=== PATIENT | female | born 2000 | race Caucasian/White ===

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

== ENCOUNTER 2022-04-19 15:19 | Emergency (ER) | payer MEDICAID, SELFPAY ==
[2022-04-19 15:46] VITALS: BP 111/54; PULSE 69; RESP 16; TEMP 36.6; O2SAT 99; BMI 21.9
[2022-04-19 17:24] LABS: Hemoglobin 12.3 g/dl (12.0-16.0); Mean Corpuscular HGB Conc 33.2 g/dl (31.0-35.0); Mean Corpuscular Hemoglobin 31.1 pg (27.0-33.0); Mean Corpuscular Volume 93.7 fL (80.0-98.0); Mean Platelet Volume 10.9 fL (9.4-12.3); Platelet Count 228 X10*3/uL (160-400); Red Blood Count 3.95 X10*6/uL (4.20-5.50); Red Cell Distribution Width 12.1 % (11.0-16.0); White Blood Count 10.8 X10*3/uL (4.8-10.8)
[2022-04-19 17:38] LABS: Anion Gap 14 (12-20); Blood Urea Nitrogen 9 mg/dL (9-16); Calcium 10.2 mg/dL (8.4-10.2); Carbon Dioxide 25 mmol/L (22-29); Chloride 105 mmol/L (96-108); Creatinine Clr Calc Pharmacy 100.7; Estimated Glomerular Filt Rate > 60; Glucose Random 102 mg/dL (60-115); Potassium 4.2 mmol/L (3.3-5.1); Sodium 140 mmol/L (135-145)
[2022-04-19 17:39] LABS: Appearance Urine Turbid; Color Urine RED; Glucose Urine UA 100 mg/dL (Negative); Leukocyte Esterase Urine Small (1+) (Negative); Nitrite Urine Positive (Negative); PH 7.5 (5.0-9.0); UMIC TRIGGER UACC YES; Urine Blood Large (3+) (Negative); Urine Ketones Negative (Negative); Urine Protein 300 (3+) mg/dL (Neg-Trace)
[2022-04-19 17:55] LABS: UPreg QC Valid YES; Urine Pregnancy NEGATIVE (NEGATIVE)
[2022-04-19 17:56] LABS: Bacteria Urine 1+ (None Seen); RBC Urine >20 /HPF (0-2); Squamous Epithelial Cell Urine 0-2 /HPF (0-2); UACC Culture Trigger YES
[2022-04-19 17:57] LABS: Hyaline Casts Urine 0-2 /LPF (0-2)
== END 2022-04-19 18:33 | disposition left against medical advice (07) ==
PROVIDERS: Emergency Provider Emergency Medicine
DX: M54.50 Low back pain, unspecified (principal); R11.10 Vomiting, unspecified; Z79.899 Other long term (current) drug therapy
CPT/HCPCS: 36415; 80048; 81001; 81025; 85027; 87086; 99282; 99283

== ENCOUNTER 2022-09-02 17:25 | Emergency (ER) | payer MEDICAID, SELFPAY ==
[2022-09-02 17:38] VITALS: BP 98/61; PULSE 66; RESP 16; TEMP 36.8; O2SAT 99; BMI 19.3
--- NOTE | 2022-09-02 17:38 | ED.GENADULT ---
HPI - General Adult General Chief complaint: Nausea/Vomiting/Diarrhea Stated complaint: N/V abdominal pain Time Seen by Provider: 09/02/22 21:45 Related Data Previous Rx's Medication Instructions Recorded nitrofurantoin 100 mg PO BID #10 caps 04/19/21 monohydrate/macrocrystals 100 mg capsule (Macrobid) phenazopyridine 200 mg tablet 200 mg PO TID PRN pain 6 doses #10 04/19/21 (Pyridium) tabs loperamide 2 mg capsule 2 mg PO Q6H PRN loose stool #20 09/02/22 caps ondansetron 4 mg disintegrating 4 mg PO Q6H PRN nausea and 09/02/22 tablet vomiting #14 tabs Allergies Allergy/AdvReac Type Severity Reaction Status Date / Time SEAFOOD Allergy Unknown UNKNOWN Uncoded 09/02/22 17:38 seafood Allergy Unknown unknown Uncoded 09/02/22 17:38 [facility] Social History Social History Advance Directives: No Advance Directives Information Provided: No Physical Exam ED Vital Signs: Vital Signs - 24 hr 09/02/22 17:38 Temperature 98.2 F Pulse Rate 66 Respiratory Rate 16 Blood Pressure 98/61 Pulse Oximetry 99 Oxygen Delivery Method Room Air BMI result Body Mass Index 19.3 Course Course Course Narrative: RME performed by Melissa Miranda PA-C. Patient is a 22 year old female presenting to the emergency department with nausea, vomiting, and diarrhea. Patient states that everyone else in her house was sick with this as well. Patient states that she is unable to keep anything down at home. Labs ordered. Patient placed back in the waiting room pending room availability and results. Patient was evaluated and discharged by TIFFANIE Ornelas who created and completed her own note. Medical Decision Making Lab Data 09/02/22 17:54 09/02/22 17:54 Labs: Lab Results 09/02/22 09/02/22 09/02/22 Range/Units 17:54 17:54 17:54 WBC 12.1 H (4.8-10.8) X10*3/uL RBC 4.03 L (4.20-5.50) X10*6/uL Hgb 12.3 (12.0-16.0) g/dl Hct 36.5 L (37.0-47.0) % MCV 90.6 (80.0-98.0) fL MCH 30.5 (27.0-33.0) pg MCHC 33.7 (31.0-35.0) g/dl RDW 12.1 (11.0-16.0) % Plt Count 198 (160-400) X10*3/uL MPV 10.2 (9.4-12.3) fL Immature Gran % (Auto) 0.3 (0.0-0.4) % Neut % (Auto) 91.4 H (45-73) % Lymph % (Auto) 5.6 L (20-40) % [place] % (Auto) 2.5 (2-11) % Eos % (Auto) 0.1 (0-4) % Baso % (Auto) 0.1 (0-2) % Lymph # (Auto) 0.7 L (1.2-4.9) X10*3/uL [place] # (Auto) 0.3 (0.1-1.2) X10*3/uL Eos # (Auto) 0.0 (0.0-0.4) X10*3/uL Baso # (Auto) 0.0 (0.0-0.2) X10*3/uL Abs Immat Gran (auto) 0.04 H (0.00-0.03) X10*3/uL Absolute Neuts (auto) 11.1 H (2.0-8.3) x10*3/uL Absolute Nucleated RBC 0.000 (0.0-0.012) X10*3/uL Nucleated RBC % (auto) 0.0 (0.0-0.2) /100WBC Smear Tech's Comments VERIFIED Sodium 140 (135-145) mmol/L Potassium 3.7 (3.3-5.1) mmol/L Chloride 108 (96-108) mmol/L Carbon Dioxide 23 (22-29) mmol/L Anion Gap 13 (12-20) BUN 15 (9-16) mg/dL Creatinine 0.70 (0.5-1.4) mg/dL Estim Creat Clear Calc 110.1 Estimated GFR > 60 Random Glucose 113 (60-115) mg/dL Calcium 9.3 D (8.4-10.2) mg/dL Magnesium 1.7 (1.6-2.6) mg/dL Total Bilirubin 0.7 (0.0-1.0) mg/dL AST 28 (5-31) U/L ALT 39 H (0-31) U/L Alkaline Phosphatase 64 (39-117) U/L Total Protein 6.9 (6.5-8.0) g/dL Albumin 4.6 (3.5-5.0) g/dL Beta HCG, Quant < 2 mIU/mL COVID-19 ([facility]) Negative (Negative) COVID-19 Clin Com See Note Discharge Plan Discharge Clinical Impression: Viral illness, Nausea & vomiting, Diarrhea Patient Disposition: Home, Self-Care Instructions: Acute Nausea and Vomiting (ED), Acute Diarrhea (ED), Viral Syndrome (ED) Additional Instructions: Take your medications as prescribed. If you were prescribed antibiotics today, it is important that you take your medication to their entirety, do not skip any doses, do not finish them early. Follow-up with your primary care provider this week. Return to the emergency department with new or worsening symptoms. Such as fevers, chills, chest pain, shortness of breath, nausea, vomiting, dizziness, headache, vision changes, lethargy In case of emergency call 911 Take Zofran as prescribed for nausea and vomiting, do not take more than the prescribed dose it can lead to cardiac dysrhythmias. Loperamide is for diarrhea take this as prescribed. Prescriptions: New loperamide 2 mg capsule 2 mg PO Q6H PRN (Reason: loose stool) Qty: 20 0RF ondansetron 4 mg tablet,disintegrating 4 mg PO Q6H PRN (Reason: nausea and vomiting) Qty: 14 0RF No Action nitrofurantoin monohyd/m-cryst [Macrobid] 100 mg capsule 100 mg PO BID Qty: 10 0RF Rx Instructions: must administer with a meal/food phenazopyridine [Pyridium] 200 mg tablet 200 mg PO TID PRN (Reason: pain) Qty: 10 0RF Referrals: [facility] [Primary Care Provider] - 2 days Stand Alone Forms: Work/School Release Interventions: ED Discharge Assessment Last Done: 09/02/22 22:34 Discharge Date/Time: 09/02/22 22:34
[2022-09-02 18:00] LABS: Basophils Percent Auto 0.1 % (0-2); Eosinophils Percent Auto 0.1 % (0-4); Hematocrit 36.5 % (37.0-47.0); Hemoglobin 12.3 g/dl (12.0-16.0); Imm Gran Abs Auto 0.04 X10*3/uL (0.00-0.03); Imm Gran Pct Auto 0.3 % (0.0-0.4); Lymphocytes Absolute Auto 0.7 X10*3/uL (1.2-4.9); Lymphocytes Percent Auto 5.6 % (20-40); MANUAL DIFF FLAG SCAN; Mean Corpuscular HGB Conc 33.7 g/dl (31.0-35.0); Mean Corpuscular Hemoglobin 30.5 pg (27.0-33.0); Mean Corpuscular Volume 90.6 fL (80.0-98.0); Mean Platelet Volume 10.2 fL (9.4-12.3); Monocytes Absolute Auto 0.3 X10*3/uL (0.1-1.2); Monocytes Percent Auto 2.5 % (2-11); Neutrophils Absolute Auto 11.1 x10*3/uL (2.0-8.3); Neutrophils Percent Auto 91.4 % (45-73); Platelet Count 198 X10*3/uL (160-400); Red Blood Count 4.03 X10*6/uL (4.20-5.50); Red Cell Distribution Width 12.1 % (11.0-16.0); SCAN SMEAR FLAG 1; White Blood Count 12.1 X10*3/uL (4.8-10.8)
[2022-09-02 18:13] LABS: COVID-19 Test Negative (Negative); IDNOW Serial# 16C4AD1C
[2022-09-02 18:21] LABS: Alanine Aminotransferase 39 U/L (0-31); Albumin Level 4.6 g/dL (3.5-5.0); Alkaline Phosphatase 64 U/L (39-117); Anion Gap 13 (12-20); Aspartate Amino Transferase 28 U/L (5-31); Bilirubin Total 0.7 mg/dL (0.0-1.0); Blood Urea Nitrogen 15 mg/dL (9-16); Calcium 9.3 mg/dL (8.4-10.2); Carbon Dioxide 23 mmol/L (22-29); Chloride 108 mmol/L (96-108); Creatinine Clr Calc Pharmacy 110.1; Estimated Glomerular Filt Rate > 60; Glucose Random 113 mg/dL (60-115); Magnesium 1.7 mg/dL (1.6-2.6); Potassium 3.7 mmol/L (3.3-5.1); Sodium 140 mmol/L (135-145); Total Protein 6.9 g/dL (6.5-8.0)
[2022-09-02 18:23] LABS: HCG Quantitative < 2 mIU/mL
[2022-09-02 18:55] LABS: SLIDE REVIEW VERIFIED
--- NOTE | 2022-09-02 22:29 | ED_ITS ---
HPI - Nausea/Vomiting/Diarrhea General Chief complaint: Nausea/Vomiting/Diarrhea Stated complaint: N/V abdominal pain Time Seen by Provider: 09/02/22 21:45 Source: patient Mode of arrival: ambulatory Limitations: no limitations History of Present Illness HPI Narrative: 22-year-old female without significant medical history presents to the emergency department with nausea, vomiting, diarrhea, subjective fevers and chills x2 days, patient tells me that she is also having slight cramping to the epigastric region, worse with vomiting. Patient tells me abdominal pain is intermittent in nature, described as a discomfort not so much pain. Patient tells me that her significant other was sick with similar symptoms about a week ago. She reports that her vomiting and diarrhea have not had any blood in them. She tells me she has felt faint. However, has not passed out. Patient denies chest pain, shortness of breath, vision changes, dizziness. Related Data Previous Rx's Medication Instructions Recorded nitrofurantoin 100 mg PO BID #10 caps 04/19/21 monohydrate/macrocrystals 100 mg capsule (Macrobid) phenazopyridine 200 mg tablet 200 mg PO TID PRN pain 6 doses #10 04/19/21 (Pyridium) tabs loperamide 2 mg capsule 2 mg PO Q6H PRN loose stool #20 09/02/22 caps ondansetron 4 mg disintegrating 4 mg PO Q6H PRN nausea and 09/02/22 tablet vomiting #14 tabs Allergies Allergy/AdvReac Type Severity Reaction Status Date / Time SEAFOOD Allergy Unknown UNKNOWN Uncoded 09/02/22 17:38 seafood Allergy Unknown unknown Uncoded 09/02/22 17:38 Review of Systems Review of Systems: Constitutional : No Weight loss, + Fever, + Chills, + Fatigue, + Malaise ENT/Mouth : No sore throat, No Rhinorrhea Eyes: No Eye Pain, No Swelling, No Redness Cardiovascular : No Chest Pain, No SOB, No Dyspnea on Exertion, No Orthopnea, No Edema, No Palpitations Respiratory : No Cough, No Sputum, No Wheezing Gastrointestinal : + Nausea, + Vomiting, + Diarrhea, No Constipation, + abdominal Pain, No Hematochezia, No Melena Genitourinary : No Dysuria, No Urinary Frequency, No Hematuria, Musculoskeletal : No joint pain, No Myalgias, No Joint Swelling Skin : No Skin Lesions, No rash Neuro : No Weakness, No Numbness, No Dizziness, No Headache Psych : No Anxiety/Panic, No Depression All other systems reviewed and are negative Yes all other systems are reviewed and are negative [facility] Past Medical History Attestation statement: The following information was validated with the patient. Source: old records reviewed and nursing notes reviewed Social History Social History Advance Directives: No Advance Directives Information Provided: No Physical Exam Vital Signs: Vital Signs: Last Vital Signs Temp 98.2 F 09/02/22 17:38 Pulse 66 09/02/22 17:38 Resp 16 09/02/22 17:38 BP 98/61 09/02/22 17:38 Pulse Ox 99 09/02/22 17:38 O2 Del Method 09/02/22 17:38 BMI result Body Mass Index 19.3 Vital signs stable Appearance: Alert.? Oriented X3.? No acute distress.? Head: Normocephalic, atraumatic, no step-offs or deformities Eyes: Pupils equal, round and reactive to light.? Neck: Normal inspection.? Neck supple.? CVS: Normal heart rate and rhythm.? Pulses normal.? Respiratory: No respiratory distress.? Breath sounds normal.? Abdomen: Soft and nontender.? Negative Davis's, Jett, McBurney's point Skin: Skin warm and dry.? Normal skin color.? Normal skin turgor.? Extremities: No lower extremity edema.? No calf ttp. 5/5 strength to bilateral upper and lower extremities Neuro: Oriented X 3.? No motor deficit.? No sensory deficit. CN 2-12 intact Course Reevaluation(s) Reevaluation #1: CBC with slight leukocytosis likely reactive to nausea and vomiting. Chemistry with no acute findings requiring intervention. COVID negative. Patient's abdomen remains nontender. Tolerating p.o.. At this time patient will be discharged home on Zofran, loperamide. Educated patient on diagnosis and treatment plan, answered all question, patient verbalizes understanding. At this time patient will be discharged home, advised to return with new or worsening symptoms. Educated on worrisome signs and symptoms and when to return. At this time I feel comfortable discharge home. Time: 22:33 Medical Decision Making Medical Decision Making [facility] Narrative: 22-year-old female presents with nausea, vomiting, diarrhea, subjective fevers and chills, reports recent sick contacts. With similar symptoms. Physical examination benign. Vital signs stable Likely viral illness or gastroenteritis. Unlikely acute abdomen, appendicitis, cholecystitis, diverticulitis or pancreatitis. Plan at this time basic labs, viral testing. Patient is not tender to palpation of abdomen, I do not feel as though there is a need for CT of the abdomen and pelvis. Differential Diagnosis Differential Diagnoses: The differential diagnosis associated with the presentation includes Likely viral illness or gastroenteritis. Unlikely acute abdomen, appendicitis, cholecystitis, diverticulitis or pancreatitis. Admission/Observation Consideration of admission/observation: Escalation of care including admission/observation considered Lab Data [facility] Lab Attestation statement: I reviewed the patient's lab results. 09/02/22 17:54 09/02/22 17:54 Labs: Lab Results 09/02/22 09/02/22 09/02/22 Range/Units 17:54 17:54 17:54 WBC 12.1 H (4.8-10.8) X10*3/uL RBC 4.03 L (4.20-5.50) X10*6/uL Hgb 12.3 (12.0-16.0) g/dl Hct 36.5 L (37.0-47.0) % MCV 90.6 (80.0-98.0) fL MCH 30.5 (27.0-33.0) pg MCHC 33.7 (31.0-35.0) g/dl RDW 12.1 (11.0-16.0) % Plt Count 198 (160-400) X10*3/uL MPV 10.2 (9.4-12.3) fL Immature Gran % (Auto) 0.3 (0.0-0.4) % Neut % (Auto) 91.4 H (45-73) % Lymph % (Auto) 5.6 L (20-40) % Peach % (Auto) 2.5 (2-11) % Eos % (Auto) 0.1 (0-4) % Baso % (Auto) 0.1 (0-2) % Lymph # (Auto) 0.7 L (1.2-4.9) X10*3/uL Peach # (Auto) 0.3 (0.1-1.2) X10*3/uL Eos # (Auto) 0.0 (0.0-0.4) X10*3/uL Baso # (Auto) 0.0 (0.0-0.2) X10*3/uL Abs Immat Gran (auto) 0.04 H (0.00-0.03) X10*3/uL Absolute Neuts (auto) 11.1 H (2.0-8.3) x10*3/uL Absolute Nucleated RBC 0.000 (0.0-0.012) X10*3/uL Nucleated RBC % (auto) 0.0 (0.0-0.2) /100WBC Smear Tech's Comments VERIFIED Sodium 140 (135-145) mmol/L Potassium 3.7 (3.3-5.1) mmol/L Chloride 108 (96-108) mmol/L Carbon Dioxide 23 (22-29) mmol/L Anion Gap 13 (12-20) BUN 15 (9-16) mg/dL Creatinine 0.70 (0.5-1.4) mg/dL Estim Creat Clear Calc 110.1 Estimated GFR > 60 Random Glucose 113 (60-115) mg/dL Calcium 9.3 D (8.4-10.2) mg/dL Magnesium 1.7 (1.6-2.6) mg/dL Total Bilirubin 0.7 (0.0-1.0) mg/dL AST 28 (5-31) U/L ALT 39 H (0-31) U/L Alkaline Phosphatase 64 (39-117) U/L Total Protein 6.9 (6.5-8.0) g/dL Albumin 4.6 (3.5-5.0) g/dL Beta HCG, Quant < 2 mIU/mL COVID-19 (COSME) Negative (Negative) COVID-19 Clin Com See Note Core Measures AMI core measures followed: Yes Measure exclusions: not indicated Critical Care Time Critical Care Time Critical Care Time: No Discharge Plan Discharge Clinical Impression: Viral illness, Nausea & vomiting, Diarrhea Patient Disposition: Home, Self-Care Instructions: Acute Nausea and Vomiting (ED), Acute Diarrhea (ED), Viral Syndrome (ED) Additional Instructions: Take your medications as prescribed. If you were prescribed antibiotics today, it is important that you take your medication to their entirety, do not skip any doses, do not finish them early. Follow-up with your primary care provider this week. Return to the emergency department with new or worsening symptoms. Such as fevers, chills, chest pain, shortness of breath, nausea, vomiting, dizziness, headache, vision changes, lethargy In case of emergency call 911 Take Zofran as prescribed for nausea and vomiting, do not take more than the prescribed dose it can lead to cardiac dysrhythmias. Loperamide is for diarrhea take this as prescribed. Prescriptions: New loperamide 2 mg capsule 2 mg PO Q6H PRN (Reason: loose stool) Qty: 20 0RF ondansetron 4 mg tablet,disintegrating 4 mg PO Q6H PRN (Reason: nausea and vomiting) Qty: 14 0RF No Action nitrofurantoin monohyd/m-cryst [Macrobid] 100 mg capsule 100 mg PO BID Qty: 10 0RF Rx Instructions: must administer with a meal/food phenazopyridine [Pyridium] 200 mg tablet 200 mg PO TID PRN (Reason: pain) Qty: 10 0RF Referrals: [facility] [Primary Care Provider] - 2 days
== END 2022-09-02 22:34 | disposition home or self-care (01) ==
PROVIDERS: Physician Assistant Medical; Emergency Provider Emergency Medicine
DX: B34.9 Viral infection, unspecified (principal); R11.2 Nausea with vomiting, unspecified; R19.7 Diarrhea, unspecified; R10.9 Unspecified abdominal pain; Z20.822 Contact with and (suspected) exposure to COVID-19; Z20.828 Contact with and (suspected) exposure to other viral communicable diseases; Z79.899 Other long term (current) drug therapy
CPT/HCPCS: 80053; 83735; 84702; 85025; 87635; 99282; 99283

== ENCOUNTER 2023-03-16 12:03 | Outpatient (REF) | payer MEDICAID, SELFPAY ==
[2023-03-18 22:17] LABS: TS Negative Control Passed; TS Panel A 0; TS Panel B 0; TS Positive Control Passed; TSpotTB Negative (Negative)
== END 2023-03-16 12:04 | disposition home or self-care (01) ==
LOC: HO.HHCL 12:03
PROVIDERS: Visit Provider Family Medicine
DX: Z11.1 Encounter for screening for respiratory tuberculosis (principal)
CPT/HCPCS: 36415; 86481

== ENCOUNTER 2023-03-17 12:09 | Outpatient (REF) | payer MEDICAID, SELFPAY ==
[2023-03-18 09:20] LABS: HBS Num1 0.19 mIU/mL (0-7.99); HBc Num1 0.19 S/CO (0.00-0.79); HBsAGNum1 0.33 S/CO (0.00-0.99); HIV AB/AG Nonreactive (Nonreactive); HIV Num 1 0.06 S/CO (0.00-0.99); Hepatitis A Antibody IgM 0.23 Index (0-0.79); Hepatitis B Core Antibody Nonreactive (Nonreactive); Hepatitis B Surface Antigen Negative (Negative); ~HepC Num1 0.55 S/CO (0.00-0.79); ~Hepatitis A Antibody IgM Nonreactive (Nonreactive); ~Hepatitis B Surface Antibody NONREACTIVE (Nonreactive); ~Hepatitis C Antibody Nonreactive (Nonreactive)
[2023-03-18 09:31] LABS: Syphilis Screen Nonreactive (Nonreactive)
[2023-03-18 09:34] LABS: CT PCR NOT DETECTED (Not Detect.); NG PCR NOT DETECTED (Not Detect.)
[2023-03-18 12:34] LABS: BV Int Neg Control Negative (Negative); BV Int Pos Control Positive (Positive)
== END 2023-03-17 12:10 | disposition home or self-care (01) ==
LOC: HO.HHCL 12:09
PROVIDERS: Visit Provider Emergency Medicine
DX: N89.8 Other specified noninflammatory disorders of vagina (principal); A64 Unspecified sexually transmitted disease
CPT/HCPCS: 0353U; 36415; 86704; 86706; 86709; 86780; 86803; 87340; 87389; 87480; 87510; 87660

== ENCOUNTER 2023-08-29 15:29 | Outpatient (REF) | payer MEDICAID, SELFPAY ==
[2023-08-30 02:14] LABS: Syphilis Screen Nonreactive (Nonreactive)
[2023-08-30 02:46] LABS: HBsAGNum1 0.37 S/CO (0.00-0.99); HIV AB/AG Nonreactive (Nonreactive); HIV Num 1 0.06 S/CO (0.00-0.99); Hepatitis B Surface Antigen Negative (Negative); ~HepC Num1 0.23 S/CO (0.00-0.79); ~Hepatitis C Antibody Nonreactive (Nonreactive)
[2023-08-31 18:22] LABS: C. trachomatis RNA TMA NOT DETECTED (NOT DETECTED); Candida glabrata RNA NOT DETECTED (NOT DETECTED); Candida species RNA DETECTED (NOT DETECTED); N. gonorrhoeae RNA TMA NOT DETECTED (NOT DETECTED); Trichomonas vaginalis RNA NOT DETECTED (NOT DETECTED)
== END 2023-08-29 15:30 | disposition home or self-care (01) ==
LOC: HO.HHCL 15:29
PROVIDERS: Visit Provider Pediatrics
DX: N89.8 Other specified noninflammatory disorders of vagina (principal)
CPT/HCPCS: 36415; 81513; 86780; 86803; 87340; 87389; 87481; 87491; 87591; 87661

== ENCOUNTER 2025-01-09 01:48 | Emergency (ER) | payer MEDICAID, SELFPAY ==
--- NOTE | 2025-01-09 01:55 | ED_ITS ---
HPI - Psych General Chief Complaint: Psychiatric Symptoms Stated Complaint: depression? months, SI thoughts today Source: patient, EMS and old records reviewed Mode of arrival: EMS Limitations: no limitations History of Present Illness ED Provider: IKE SMITH Narrative: 24 yo female with PMH of anxiety who is not on medications or therapy - she has two small children at home 2 yr old and 8 months. She has been having increased depression and thoughts of SI. She felt suicidal earlier but not at the moment. She hits herself when she is frustrated. She has no therapy and takes no medications. She sent her kids to their grandmother's house for the holiday. She lives with a family member but she has to leave in 2 months and cannot get into a penitentiary. MD complaint: suicidal ideation and feels depressed Duration: getting worse History of same: Yes Relieving factors: none Exacerbating factors: other Context: significant life stressor Associated psychiatric symptoms: depression and suicidal ideation Associated symptoms: denies other symptoms Treatments prior to arrival: none If self harm: admits thoughts of self harm Related Data Home Medications ?Medication ?Instructions ?Recorded ?Confirmed No Known Home Meds 01/09/25 01/09/25 Allergies Allergy/AdvReac Type Severity Reaction Status Date / Time SEAFOOD Allergy Unknown UNKNOWN Uncoded 01/09/25 02:04 seafood Allergy Unknown unknown Uncoded 01/09/25 02:04 Review of Systems 2 Review of Systems: Constitutional : No Fever, No Chills ENT/Mouth : No Ear Pain, No Nasal Congestion, No sore throat Eyes: No Eye Pain, No Swelling, No Redness Cardiovascular : No Chest Pain, No SOB Respiratory : No Cough, No Sputum, No Dyspnea Gastrointestinal : No Nausea, No Vomiting, No Diarrhea, No Hematochezia, No Melena Genitourinary : No Dysuria, No Urinary Frequency, No Hematuria Musculoskeletal : No Myalgias Skin : No Skin Lesions, No rash Neuro : No Weakness, No Numbness, No Paresthesias, No Dizziness, No Headache Psych : positive Anxiety, positive Depression, positive SI no HI All other systems reviewed and are negative PMFSH Past Medical History Attestation statement: The following information was validated with the patient. Source: old records reviewed Medical History Anxiety Social History Social History (Updated 01/09/25 @ 01:56 by Tania Knight DO) Patient Tobacco Use Status: Never used Tobacco Advance Directives: No Advance Directives Information Provided: Yes Do you have a plan to hurt others: No Plan Physical Exam 2 Vital Signs: Vital Signs: Last Vital Signs Temp 98.1 F 01/09/25 08:27 Pulse 64 01/09/25 08:27 Resp 14 01/09/25 08:27 BP 102/65 01/09/25 08:27 Pulse Ox 94 01/09/25 08:27 O2 Del Method Room Air 01/09/25 08:27 BMI result Body Mass Index 24.6 Appearance: Alert. Oriented X3. No acute distress. Tearful Eyes: Pupils equal, round and reactive to light. ENT: Pharynx normal. Neck: Normal inspection. Neck supple. CVS: Normal heart rate and rhythm. Pulses normal. Respiratory: No respiratory distress. Breath sounds normal. Abdomen: Soft and nontender. Skin: Skin warm and dry. Normal skin color. Normal skin turgor. Extremities: No lower extremity edema. No calf ttp Neuro: Oriented X 3. No motor deficit. No sensory deficit. CN2-12 intact Course Course Course Narrative: WBC count elevated but no source of infection reported. Reevaluation(s) Reevaluation #1: Time: 16:52 Date: 01/09/25 Provider: TIFFANIE Carias Patient presented with thoughts of SI, struggling with depression. she was medically cleared. I spoke with Deborah from CARE team who has evaluated patient. Patient's partner has been at her bedside all day. Deborah has cleared patient and is recommending outpatient follow up. She does not feel as though patient is a harm to herself or others at this point. They have created a safety plan. Patient was informed to return to the ED with any new or worsening symptoms. she will be discharged home with her partner. end physician observation at 1656. Medical Decision Making Medical Decision Making MDM Narrative: 24 yo female with anxiety and depression here with c/o increased depression and SI that has resolved. No medical issues or complaints she will need labs and CARE team consult. She is very tearful. She has been applying to shelters and housing and cannot get into anything. Her housing situation will be unstable in 2 months. Differential Diagnosis Differential Diagnoses: The differential diagnosis associated with the presentation includes anxiety, depression, SI Admission/Observation Consideration of admission/observation: Escalation of care including admission/observation considered physician observation started at 204am Consult Healthcare Provider Management of the patient was discussed with: Behavioral Health Provider Lab Data MDM Lab Attestation statement: I reviewed the patient's lab results. 01/09/25 02:10 01/09/25 02:10 Labs: Lab Results 01/09/25 01/09/25 Range/Units 02:10 02:17 WBC 17.2 H (4.8-10.8) X10*3/uL RBC 3.66 L (4.20-5.50) X10*6/uL Hgb 11.5 L (12.0-16.0) g/dl Hct 33.3 L (37.0-47.0) % MCV 91.0 (80.0-98.0) fL MCH 31.4 (27.0-33.0) pg MCHC 34.5 (31.0-35.0) g/dl RDW 12.6 (11.0-16.0) % Plt Count 241 (160-400) X10*3/uL MPV 10.7 (9.4-12.3) fL Immature Gran % (Auto) 0.4 (0.0-0.4) % Neut % (Auto) 80.1 H (45-73) % Lymph % (Auto) 15.0 L (20-40) % Mitchell % (Auto) 4.1 (2-11) % Eos % (Auto) 0.2 (0-4) % Baso % (Auto) 0.2 (0-2) % Lymph # (Auto) 2.6 (1.2-4.9) X10*3/uL Mitchell # (Auto) 0.7 (0.1-1.2) X10*3/uL Eos # (Auto) 0.0 (0.0-0.4) X10*3/uL Baso # (Auto) 0.0 (0.0-0.2) X10*3/uL Abs Immat Gran (auto) 0.07 H (0.00-0.03) X10*3/uL Absolute Neuts (auto) 13.8 H (2.0-8.3) x10*3/uL Absolute Nucleated RBC 0.000 (0.0-0.012) X10*3/uL Nucleated RBC % (auto) 0.0 (0.0-0.2) /100WBC Sodium 142 (135-145) mmol/L Potassium 3.4 (3.3-5.1) mmol/L Chloride 109 H (96-108) mmol/L Carbon Dioxide 23 (22-29) mmol/L Anion Gap 13 (12-20) BUN 13 (9-16) mg/dL Creatinine 0.79 (0.5-1.4) mg/dL Estim Creat Clear Calc 92.1 Estimated GFR > 60 Random Glucose 93 (60-115) mg/dL Calcium 9.6 (8.4-10.2) mg/dL Total Bilirubin 0.5 (0.0-1.0) mg/dL Direct Bilirubin 0.2 (0.0-0.5) mg/dL AST 22 (5-31) U/L ALT 17 (0-31) U/L Alkaline Phosphatase 65 (39-117) U/L Total Protein 7.3 (6.5-8.0) g/dL Albumin 4.9 (3.5-5.0) g/dL Urine Color Dark Yellow Urine Appearance Cloudy Urine pH 5.5 (5.0-9.0) Ur Specific Strawn >= 1.030 H (1.005-1.025) Urine Protein 100 (2+) H (Neg-Trace) mg/dL Urine Glucose (UA) Negative (Negative) mg/dL Urine Ketones 15 (Negative) mg/dL Urine Blood Negative (Negative) Urine Nitrite Negative (Negative) Ur Leukocyte Esterase Negative (Negative) Urine RBC 11-20 H (0-2) /HPF Urine WBC 0-5 (0-5) /HPF Ur Squamous Epith Cells 11-20 (0-2) /HPF Urine Bacteria Trace (None Seen) Hyaline Casts >20 (0-2) /LPF Granular Casts Present Urine Yeast Present Urine Test NEGATIVE (NEGATIVE) Urine Opiates Screen Not Detected (Not Detect) Ur Buprenorphine Scrn Not Detected (Not Detect) ng/mL Ur Oxycodone Screen Not Detected (Not Detect) ng/mL Urine Methadone Screen Not Detected (Not Detect) ng/mL Urine Fentanyl Screen Not Detected (Not Detect) Ur Barbiturates Screen Not Detected (Not Detect) Ur Phencyclidine Scrn Not Detected (Not Detect) Ur Amphetamines Screen Not Detected (Not Detect) U Benzodiazepines Scrn Not Detected (Not Detect) Urine Cocaine Screen Not Detected (Not Detect) U Marijuana (THC) Screen POSITIVE H (Not Detect) Ethyl Alcohol 12 mg/dL Independent Historian Clinical information obtained from an independent historian. History obtained from or confirmed by: EMS External Record Review External record reviewed: Outpatient record Discharge Plan Discharge Clinical Impression: Depression Qualifiers: Depression Type: unspecified Qualified Code(s): F32.A - Depression, unspecified Patient Disposition: Home, Self-Care Instructions: Depression (ED) Additional Instructions: You were seen in our Emergency Department today for depression and suicidal thoughts. It is important after your visit that you follow up with either your behavioral health provider or a primary care doctor within 7 days.? You have a safety plan in place with our CARE team. If you have trouble finding a therapist you can reach out to [address] [phone] The National Suicide and Crisis Lifeline can be reached 7 days a week 24 hours a day.? Call 988 to speak with someone.? Return for any worsening symptoms or concerns such as thoughts of self harm or harm to others. Please call 911 if you feel your mental health is worsening.? Prescriptions: No Action No Known Home Meds Referrals: [facility] [Primary Care Provider, Medical] Interventions: [place]-Suicide Risk Severity Scale Last Done: 01/09/25 03:37 Print Language: Syriac
[2025-01-09 01:59] VITALS: BMI 24.6
[2025-01-09 02:24] LABS: MANUAL DIFF FLAG NO
[2025-01-09 02:27] LABS: Hematocrit 33.3 % (37.0-47.0); Hemoglobin 11.5 g/dl (12.0-16.0); Imm Gran Abs Auto 0.07 X10*3/uL (0.00-0.03); Imm Gran Pct Auto 0.4 % (0.0-0.4); Lymphocytes Absolute Auto 2.6 X10*3/uL (1.2-4.9); Mean Corpuscular HGB Conc 34.5 g/dl (31.0-35.0); Mean Corpuscular Hemoglobin 31.4 pg (27.0-33.0); Mean Corpuscular Volume 91.0 fL (80.0-98.0); NRBC Abs Auto 0.000 X10*3/uL (0.0-0.012); NRBC Pct Auto 0.0 /100WBC (0.0-0.2); Platelet Count 241 X10*3/uL (160-400); Red Blood Count 3.66 X10*6/uL (4.20-5.50); White Blood Count 17.2 X10*3/uL (4.8-10.8)
[2025-01-09 02:31] LABS: Appearance Urine Cloudy; Glucose Urine UA Negative (Negative); PH 5.5 (5.0-9.0); Specific Gravity - Urine >= 1.030 (1.005-1.025); UMIC TRIGGER UACC YES
[2025-01-09 02:32] LABS: UPreg QC Valid YES
[2025-01-09 02:41] LABS: Cannabinoid Screen Urine POSITIVE (Not Detect)
[2025-01-09 02:47] LABS: Alanine Aminotransferase 17 U/L (0-31); Albumin Level 4.9 g/dL (3.5-5.0); Alkaline Phosphatase 65 U/L (39-117); Anion Gap 13 (12-20); Aspartate Amino Transferase 22 U/L (5-31); Blood Urea Nitrogen 13 mg/dL (9-16); Calcium 9.6 mg/dL (8.4-10.2); Carbon Dioxide 23 mmol/L (22-29); Chloride 109 mmol/L (96-108); Creatinine Clr Calc Pharmacy 92.1; Estimated Glomerular Filt Rate > 60; Potassium 3.4 mmol/L (3.3-5.1); Sodium 142 mmol/L (135-145); Total Protein 7.3 g/dL (6.5-8.0)
--- OUTSIDE RECORDS SUMMARY | 2025-01-09 03:28 | XMS_ITS | Referral Summary ---
Author Organization [facility] Address [address] [place] [address] Care Team Providers Care Well Driller Helper Name Role Phone [facility] Primary Care Provider Allergies Active Allergy Reactions Criticality Noted Date Comments Shellfish Derived Angioedema High 08/31/2020 Medications ibuprofen (MOTRIN) 600 mg tablet Take 1 tablet (600 mg total) by mouth every 6 hours as needed for pain. 30 tablet 08/31/2020 Active methylergonovine (METHERGINE) 0.2 mg tablet Take 1 tablet (0.2 mg total) by mouth every 6 hours. 4 tablet 09/01/2020 Active Active Problems Problem Noted Date Diagnosed Date Unplanned 08/31/2020 Immunizations Immunization Administration Dates Next Due Rho (D) Immune Globulin - IM 09/01/2020 Social History Tobacco Use Types Packs/Day Years Used Date Smoking Tobacco: Never Smokeless Tobacco: Never Alcohol Use Standard Drinks/Week Comments Never 0 (1 standard drink = 0.6 oz pur e alcohol) Comments Unknown Sex and Gender Information Value Date Recorded Sex Assigned at Not on file Legal Sex Female 11:25 AM EST Gender Identity Not on file Sexual Orientation Not on file Last Filed Vital Signs Vital Sign Reading Time Taken Comments Blood Pressure 108/71 09/01/2020 6:04 PM EST Pulse 72 09/01/2020 6:04 PM EST Temperature 36.8 C (98.2 F) 09/01/2020 6:04 PM EST Respiratory Rate 20 09/01/2020 6:04 PM EST Oxygen Saturation 100% 09/01/2020 6:04 PM EST Inhaled Oxygen Concentration - - Weight 65.1 kg (143 lb 9.6 oz) 09/01/2020 10:03 AM EST Height 155.7 cm (5' 1.3 ) 09/01/2020 10:03 AM ES T Body Mass Index 26.87 09/01/2020 10:03 AM EST Plan of Treatment Not on file Insurance [employer] Advance Directives Documents on File Type Date Recorded Patient Housekeeping Associate Expl anation Health Care Proxy 09/02/2020 8:41 AM 09-01 Health Care Proxy 09/02/2020 7:57 AM 09-01 Health Care Proxy 09/01/2020 2:43 PM 08-11 * Full Code (Latest Code Status on File) Date Activated Date Inactivated Comments 09/01/2020 10:38 AM 09/01/2020 9:24 PM Healthcare Agents on File Name Relationship Healthcare Agent Relationshi p Communication [place] Significant Other Health Care Agent Care Teams Well Driller Helper Relationship Specialty Start Date End Date [facility] [address] [place] [id number] PCP - General 08/26/20
[2025-01-09 08:27] VITALS: BP 102/65; PULSE 64; RESP 14; TEMP 36.7; O2SAT 94
--- NOTE | 2025-01-09 09:18 | PC.NURSE ---
patient awake, alert, ambulating on unit, pt requesting to discharge and wanting to talk with care team to discharge. care team was notified.
--- NOTE | 2025-01-09 14:17 | PC.NURSE ---
care team at bedside to evaluate pt
[2025-01-09 17:15] VITALS: BP 103/66; PULSE 66; RESP 16; TEMP 36.8; O2SAT 96
--- NOTE | 2025-01-09 17:15 | PC.NURSE ---
patient a&ox3, denies si/hi, pts significant other here to transport patient home with discharge, care team gave outpt resources.
--- NOTE | 2025-01-09 22:51 | MHC.CARE ---
RAD Team emailed [facility] referral for this pt.
== END 2025-01-09 17:16 | disposition home or self-care (01) ==
PROVIDERS: Emergency Provider Emergency Medicine
DX: F32.A Depression, unspecified (principal); R45.851 Suicidal ideations; F41.9 Anxiety disorder, unspecified; Z72.89 Other problems related to lifestyle; Z59.811 Housing instability, housed, with risk of homelessness
CPT/HCPCS: 36415; 80048; 80076; 80307; 81001; 81025; 85025; 99284; S9485

== ENCOUNTER 2025-02-20 14:56 | Outpatient (REF) | payer MEDICAID, SELFPAY ==
--- OUTSIDE RECORDS SUMMARY | 2025-02-20 14:20 | XMS_ITS | Encounter Summary ---
Author Organization [employer] Address [address] [facility] [address] [place] [address] Care Team Providers Care Corner Cutter Machine Operator Name Role Phone Shelly Hernandez MD Primary Care Provider [phone] Encounter Details Date Type Department Care Team (Late st Contact Info) Description 02/20/2025 2:20 PM EDT Office Visit [facility] [address] [place] [id number] Screening examination for STI (Primary Dx); Vaginal discomfort; Amenorrhea; Vaginal discharge Social History Tobacco Use Types Packs/Day Years Used Date Smoking Tobacco: Never Passive Smoke Exposure: Never Smokeless Tobacco: Never Comments Unknown Sex and Gender Information Value Date Recorded Sex Assigned at Female 05/09/2022 10:17 AM EDT Legal Sex Female 10:17 AM EDT Gender Identity Female 05/09/2022 10:17 AM EDT Sexual Orientation Bisexual 02/20/2025 2: 11 PM EDT Sexual Orientation Straight 02/20/2025 2: 11 PM EDT documented as of this encounter Last Filed Vital Signs Vital Sign Reading Time Taken Comments Blood Pressure 128/74 02/20/2025 2:26 PM EDT Pulse 83 02/20/2025 2:26 PM EDT Temperature 37 C (98.6 F) 02/20/2025 2:26 PM EDT Respiratory Rate 16 02/20/2025 2:26 PM EDT Oxygen Saturation 99% 02/20/2025 2:26 PM EDT Inhaled Oxygen Concentration - - Weight 54 kg (119 lb 2 oz) 02/20/2025 2:26 PM ED T Height 154.9 cm (5' 1 ) 02/20/2025 2:26 PM EDT Body Mass Index 22.51 02/20/2025 2:26 PM EDT documented in this encounter Plan of Treatment Upcoming Encounters Date Type Department Care Team (Late st Contact Info) Description 05/01/2025 10:00 AM EDT Office Visit [facility] [address] [place] [address] Shelly Hernandez MD [address] [place] [address] Scheduled Orders Name Type Priority Associated Diagnoses Orde r Schedule Bacterial Vaginosis Microbiology Routine Vaginal discomfort Ordered: 02/20/2025 Chlamydia/N. Gonorrhoeae RNA, TMA, Urogenitial Microbiology Routine Vaginal discomfort Ordered: 02/20/2025 Hepatitis B surface antigen, EIA Lab Routine Screening examination for STI Expected: 02/20/2025 (Approximate), Expires: 02/20/2026 HIV-1/2 Antigen and Antibodies, Fourth Generation, with Reflexes Lab Routine Screening examination for STI Expected: 02/20/2025 (Approximate), Expires: 02/20/2026 Hepatitis C Antibody with Reflex to HCV, RNA, Quantitative, Real-Time PCR Lab Routine Screening examination for STI Expected: 02/20/2025, Expires: 02/20/2026 RPR (Monitor) with Reflex to Titer Lab Routine Screening examination for STI Expected: 02/20/2025, Expires: 02/20/2026 Hepatitis B Surface Antibody, Qualitative Lab Routine Screening examination for STI Expected: 02/20/2025 (Approximate), Expires: 02/20/2026 documented as of this encounter Procedures Procedure Name Priority Date/Time Associated Diagnosis Comments POCT , URINE Routine 02/20/2025 2:35 PM EDT Amenorrhea documented in this encounter Results * POCT Urine (02/20/2025 2:35 PM EDT) Preg Test, Ur Negative Negative, Indeterminate, None Detected, Invalid, Specimen unsatisfactory for evaluation, Weakly Positive, 2+ QC Media Lot # [id number] Lot# Expiration Date ,641 Urine 02/20/2025 2:35 PM EDT Kyra Bear DO POINT OF CARE TEST ENTER/ROBBY T ORDERABLES Final Result documented in this encounter Visit Diagnoses Diagnosis Screening examination for STI- Primary Vaginal discomfort Amenorrhea Absence of menstruation Vaginal discharge Leukorrhea, not specified as infective documented in this encounter Care Teams Corner Cutter Machine Operator Relationship Specialty Start Date End Date Shelly Hernandez MD [address] [place] [id number] PCP - General Family Medicine 08/13/20 documented as of this encounter
--- OUTSIDE RECORDS SUMMARY | 2025-02-20 15:32 | XMS_ITS | Clinical Summary ---
Author Organization [facility] Address [address] [place] [address] Care Team Providers Care Premium Representative Name Role Phone [facility] Primary Care Provider Allergies Active Allergy [...] Rho (D) Immune Globulin - IM 09/01/2020 Family History Medical History Relation Name Comments No Known Problems Mother Relation Name Status Comments Mother Alive Social History Tobacco Use Types Packs/Day Years [...] 09/01/2020 10:03 AM EST Plan of Treatment Health Maintenance Due Date Last Done Comments HIV Screening 2002 Pap Smear 2002 Varicella Vaccines (1 of 2 - 13+ 2-dose series) 2015 HPV Vaccines (1 - 3-dose series) 2017 Hepatitis B Vaccines (1 of 3 - 19+ 3-dose series) 2021 COVID-19 Vaccine (1 - 2023-2 5 season) 2024 Alcohol/Substance Use Screening 07/10/2024 Influenza Vaccine (#1) 2025 06/12/2019 DTaP,Tdap,and Td Vaccines (3 - Td or Tdap) 09/15/2029 09/16/2019, 06/21/2019 RSV Vaccine (60+ years old a nd patients) (1 - 1-dose 75+ series) 2077 Meningococcal Vaccine Completed 09/16/2019 Pneumococcal Vaccine: Pediatric (0-5 Years) and At-Risk Patients (6-50 Years) Aged Out No longer eligible based on patient's age to complete this topic Insurance [facility] Advance Directives Documents on File Type Date Recorded Patient Guard Chief Expl anation Health Care Proxy 09/02/2020 8:41 AM 09-01 Health Care Proxy 09/02/2020 7:57 AM 09-01 Health Care Proxy 09/01/2020 2:43 PM 09-01 * Full Code (Latest Code Status on File) Date Activated Date Inactivated Comments 09/01/2020 10:38 AM 09/01/2020 9:24 PM Healthcare Agents on File Name Relationship Healthcare Agent Jose Cruz p Communication Smooth Townsend Significant Other Health Care Agent Care Teams Premium Representative Relationship Specialty Start Date End Date [facility] [address] [place] [phone] PCP - General 08/26/20
[2025-02-21 03:39] LABS: HBS Num1 1.32 mIU/mL (0-7.99); HBsAGNum1 0.50 S/CO (0.00-0.99); HIV Num 1 0.05 S/CO (0.00-0.99); Hepatitis B Surface Antigen Negative (Negative); ~HepC Num1 0.22 S/CO (0.00-0.79); ~Hepatitis B Surface Antibody NONREACTIVE (Nonreactive); ~Hepatitis C Antibody Nonreactive (Nonreactive)
[2025-02-21 04:36] LABS: Bacterial Vaginosis PCR POSITIVE (Negative); Candida Group PCR NOT DETECTED (Not Detect); Candida glab krusei PCR NOT DETECTED (Not Detect); Trichomonas vaginalis PCR NOT DETECTED (Not Detect)
[2025-02-21 05:06] LABS: CT PCR NOT DETECTED (Not Detect.); NG PCR DETECTED (Not Detect.)
== END 2025-02-20 14:57 | disposition home or self-care (01) ==
LOC: HO.HHCL 14:56
PROVIDERS: PCP Family Medicine; Visit Provider Family Medicine
DX: Z11.3 Encounter for screening for infections with a predominantly sexual mode of transmission (principal); Z11.8 Encounter for screening for other infectious and parasitic diseases; Z11.59 Encounter for screening for other viral diseases; Z11.4 Encounter for screening for human immunodeficiency virus [HIV]; N94.9 Unspecified condition associated with female genital organs and menstrual cycle
CPT/HCPCS: 36415; 81515; 86592; 86706; 86803; 87340; 87389; 87491; 87591

== ENCOUNTER 2025-05-01 11:52 | Outpatient (REF) | payer MEDICAID, SELFPAY ==
--- OUTSIDE RECORDS SUMMARY | 2025-05-01 10:00 | XMS_ITS | Encounter Summary ---
Author Organization [employer] Address [address] [facility] [address] [place] [address] Care Team Providers Care Coating And Baking Operator Name Role Phone Shelly Hernandez MD Primary Care Provider [phone]- [phone] Reason for Referral * Consultation (Routine) - Authorized Specialty Diagnoses / Procedures [facility] Referred To Contact Allergy Diagnoses Shellfish allergy Shelly Hernandez MD [address] [place] [phone] Phone: tel: fax: Praveen Chun MD [address] [place] [address] Referral ID Status Reason Start Date Expiration Date Visits Requested Visits Authorized [id number] Authorized Specialty Services Required 05/01/2026 12 12 Reason for Visit * Reason Comments Annual Exam Encounter Details Date Type Department Care Team (Late st Contact Info) Description 05/01/2025 10:00 AM EDT Office Visit [facility] [address] [place] [address] [phone] Shelly Hernandez MD [address] [place] [phone] Moderate episode of recurrent major depressive disorder (CMS/HCC) (HCC) (Primary Dx); Mild intermittent asthma without complication; Shellfish allergy; History of anaphylaxis; Encounter for HIV pre-exposure prophylaxis; Encounter for vaccination; Encounter for immunization; Routine screening for STI (sexually transmitted infection); Preventative health care Social History Tobacco Use Types Packs/Day Years Used Date Smoking Tobacco: Never Passive Smoke Exposure: Never Smokeless Tobacco: Never Alcohol Use Standard Drinks/Week Comments Never 0 (1 standard drink = 0.6 oz pur e alcohol) Depression Answer Date Recorded Patient Health Questionnaire-9 Score 6 05/01/2025 Patient Health Questionnaire-9 Score 6 05/01/2025 Last PHQ-9: Questionnaire Data Not on file 1 Housing Stability Answer Date Recorded What is your housing situation today? I do not have housing (Staying with others, in a hotel, in a detention, living outside on the street, on a beach, in a car, or in a park 04/23/[address] you li ve. Do you have problems with any of the following? None of the above 04/23/2025 Food Insecurity Answer Date Recorded Within the past 12 months, y ou worried that your food would run out before you got money to buy more: Never True 04/23/2025 Within the past 12 months,th e food you bought just didn't last and you didn't have enough money to get more: Never True Transportation Answer Date Recorded In the past 12 months, has l ack of transportation kept you from medical appts, meetings, work or from getting things needed for daily living? No 04/23/2025 Utilities Answer Date Recorded In the past 12 months, has t he electric, gas, oil or water company threatened to shut off services in your home? No 04/23/2025 Depression Answer Date Recorded Patient Health Questionnaire-2 Score 2 05/01/2025 Internet Access Answer Date Recorded Internet Access Q1 Yes 04/23/2025 Internet Access Q2 Not on file 04/23/2025 Comments No Sex and Gender Information Value Date Recorded Sex Assigned at Female 05/09/2022 10:17 AM EDT Legal Sex Female 10:17 AM EDT Gender Identity Female 05/09/2022 10:17 AM EDT Sexual Orientation Bisexual 02/20/2025 2: 11 PM EDT Sexual Orientation Straight 02/20/2025 2: 11 PM EDT documented as of this encounter Last Filed Vital Signs Vital Sign Reading Time Taken Comments Blood Pressure 102/74 05/01/2025 10:04 AM EDT Pulse 76 05/01/2025 10:04 AM EDT Temperature 36.8 C (98.2 F) 05/01/2025 10:04 AM EDT Respiratory Rate 20 05/01/2025 10:0 4 AM EDT Oxygen Saturation - - Inhaled Oxygen Concentration - - Weight 57.1 kg (125 lb 12.8 oz) 025 10:04 AM EDT Height - - Body Mass Index 23.77 02/20/2025 2:26 PM EDT documented in this encounter Functional Status * Over the past 2 weeks, how often have you been bothered by any of the following problems? Question Answer Date of Assessment Author Patient Health Questionnaire -2 Score 2 05/01/2025 10:35 AM EDT Sreekanth Skinner MA * Little interest or pleasure in doing things Answer Date of Assessment Author Several days 05/01/2025 10:35 AM EDT Rosaura Skinner MA * Feeling down, depressed, or hopeless Answer Date of Assessment Author Several days 05/01/2025 10:35 AM EDT Rosaura Skinner MA * Trouble falling or staying asleep, or sleeping too much Answer Date of Assessment Author Several days 05/01/2025 10:35 AM EDT Rosaura Skinner MA * Feeling tired or having little energy Answer Date of Assessment Author Several days 05/01/2025 10:35 AM EDT Rosaura Skinner MA * Poor appetite or overeating Answer Date of Assessment Author Several days 05/01/2025 10:35 AM EDT Rosaura Skinner MA * Feeling bad about yourself - or that you are a failure or have let yourself or your family down Answer Date of Assessment Author Several days 05/01/2025 10:35 AM GAYLAT Rosaura Skinner MA * Trouble concentrating on things, such as reading the newspaper or watching television Answer Date of Assessment Author Not at all 05/01/2025 10:35 AM EDT Rosaura Skinner MA * Moving or speaking so slowly that other people could have noticed? Or the opposite - being so fidgety or restless that you have been moving around a lot more than usual. Answer Date of Assessment Author Not at all 05/01/2025 10:35 AM Rosaura Jarvis MA * Thoughts that you would be better off or hurting yourself in some way Answer Date of Assessment Author Not at all 05/01/2025 10:35 AM Rosaura Jarvis MA * Patient Health Questionnaire-9 Score Answer Date of Assessment Author 6 05/01/2025 10:35 AM Rosaura Jarvis MA * How difficult have these problems made it for you to do your work, take care of things at home, or get along with other people? Answer Date of Assessment Author Somewhat difficult 05/01/2025 10:35 AM EDT Rosaura Zamora MA * Over the last 2 weeks, how often have you been bothered by any of the following problems? Question Answer Date of Assessment Author Feeling nervous, anxious, or on edge 1 05/01/2025 10:36 AM Sreekanth Jarvis MA Not being able to stop or control worrying 1 05/01/2025 10:36 AM Sreekanth Jarvis MA Worrying too much about different things 0 05/01/2025 10:36 AM Sreekanth Jarvis MA Trouble relaxing 1 05/01/2025 10:36 AM Rosaura Jarvis MA Being so restless that it is hard to sit still 1 05/01/2025 10:36 AM Sreekanth Jarvis MA Becoming easily annoyed or irritable 1 05/01/2025 10:36 AM Sreekanth Jarvis MA Feeling afraid as if somethi ng awful might happen 1 05/01/2025 10:36 AM Sreekanth Jarvis MA JESU-7 Total Score 6 05/01/2025 10:36 AM Rosaura Jarvis MA documented as of this encounter Progress Notes * Shelly Hernandez MD - 05/01/2025 10:00 AM EDT Mary Solitario is a 24 y.o. female who presents to the office today for a routine physical and transfer care. Interim history: Seen in ER for psychiatric symptoms and possible post depression. Current concerns: -Depression and anxiety. Seen by behavior health today. Would like to start medication today. -She had severe allergic reaction to shellfish age 9 and would like to have allergy testing -treated for chlamydia 01/2025 but partner did not get treated and they have had intercourse in the interim Social History Living situation: Lives with , god mother and her two children: Radha age 5 and Rosalba age 1 Employment/Education: Diet/exercise: At least 150 minutes of moderate-intensity physical activity per week; Well balanceddiet Tobacco: denied Drugs: mariajuana as self-medication for depression and anxiety Alcohol: No Sexuality: one male partner, uses depo, denies DV Suicide/Depression: pos depression and anxiety screen Review of Systems Constitutional: Negative for fever. Respiratory: Negative for cough. Cardiovascular: Negative for chest pain. Current Medications[1] Allergies[2] Medical History[3] Surgical History[4] Family History[5] Objective Visit Vitals BP 102/74 Pulse 76 Temp 98.2 ??F (36.8 ??C) (Oral) Resp 20 Wt 125 lb 12.8 oz (57.1 kg) LMP 03/31/2025 (Approximate) BMI 23.77 kg/m?? OB Status Having periods Smoking Status Never BSA 1.57 m?? Physical Exam Constitutional: Appearance: Normal appearance. She is normal weight. Skin: General: Skin is warm and dry. Findings: No rash. Neurological: General: No focal deficit present. Mental Status: She is alert and oriented to person, place, and time. Psychiatric: Mood and Affect: Mood normal. 24 y.o. female physical exam. Assessment & Plan Moderate episode of recurrent major depressive disorder (CMS/HCC) (HCC) -seen by behavior health today -start zoloft 25mg daily 05/01/25 -has number for crisis -return 6 weeks Orders: sertraline (Zoloft) 25 MG tablet; Take 1 tablet (25 mg) by mouth Once per day. Mild intermittent asthma without complication -well controlled on albuterol prn Shellfish allergy -has epi pen -referral to poultry husbandman 05/01/25 for questions regarding allergy testing Orders: Referral to Allergy; Future History of anaphylaxis Orders: EPINEPHrine (Epipen) 0.3 MG/0.3ML injection syringe; Inject 0.3 mL (0.3 mg) as directed 1 (one) time for 1 dose. use as directed for allergic reaction and then call 911 Encounter for HIV pre-exposure prophylaxis Orders: emtricitabine-tenofovir DF (Truvada) 200-300 MG tablet; Take 1 tablet by mouth Once per day. Encounter for vaccination Orders: COVID-19 VACCINE [id number] (Comirnaty) 19 yrs + Encounter for immunization Orders: FLU VACCINE TRIVALENT [id number] (Fluarix) 19 yrs + PCV-20 VACCINE 6 wks + Routine screening for STI (sexually transmitted infection) Orders: Chlamydia/N. Gonorrhoeae RNA, TMA, Vagina HIV-1/2 Antigen and Antibodies, Fourth Generation, with Reflexes; Future Hepatitis C Antibody with Reflex to HCV, RNA, Quantitative, Real-Time PCR; Future Syphilis Screen; Future Bacterial Vaginosis, Yeast and Trich; Future Physical exam -Normal growth and development. -Anticipatory guidance discussed. -Preventative care / harm reduction discussed. Follow up in about 6 weeks (around 06/12/2025) for , then 2 months for pap need 30 min. [1] Current Outpatient Medications: emtricitabine-tenofovir DF (Truvada) 200-300 MG tablet, Take 1 tablet by mouth Once per day., Disp:30 tablet, Rfl: 2 EPINEPHrine (Epipen) 0.3 MG/0.3ML injection syringe, Inject 0.3 mL (0.3 mg) as directed 1 (one) time for 1 dose. use as directed for allergic reaction and then call 911, Disp: 2 each, Rfl: 1 medroxyPROGESTERone (Depo-Provera) 150 MG/ML suspension prefilled syringe injection syringe, [id number] mg by IM route every 3 months for contraception. Bring to nurse appointment for injection., Disp: 1 mL, Rfl: 3 sertraline (Zoloft) 25 MG tablet, Take 1 tablet (25 mg) by mouth Once per day., Disp: 90 tablet, Rfl: 3 Current Facility-Administered Medications: medroxyPROGESTERone (Depo-Provera) injection 150 mg, 150 mg, Intramuscular, q3 months, Amber Ballesteros RN, 150 mg at 02/21/25 1330 [2] Allergies Allergen Reactions Shellfish Protein-Containing Drug Products Swelling and Angioedema [3] Past Medical History: Diagnosis Date Attention deficit hyperactivity disorder, combined type 08/13/2015 Mild intermittent asthma 08/13/2015 [4] History reviewed. No pertinent surgical history. [5] Family History Problem Relation Name Age of Onset Breast cancer Mother Cancer Mother's Sister documented in this encounter Miscellaneous Notes * Assessment & Plan Note - Shelly Hernandez MD - 05/01/2025 10:00 AM EDT Associated Problem(s): Mild intermittent asthma -well controlled on albuterol prn documented in this encounter Plan of Treatment Upcoming Encounters Date Type Department Care Team (Late st Contact Info) Description 05/09/2025 1:00 PM EDT Nurse Only [facility] [address] [place] [phone] 07/04/2025 9:00 AM EST Procedure Visit [facility] [address] [place] [phone] Shelly Hernandez MD [address] [place] [phone] Scheduled Orders Name Type Priority Associated Diagnoses Orde r Schedule Chlamydia/N. Gonorrhoeae RNA, TMA, Vagina Microbiology Routine Routine screening for STI (sexually transmitted infection) Ordered: 05/01/2025 HIV-1/2 Antigen and Antibodies, Fourth Generation, with Reflexes Lab Routine Routine screening for STI (sexually transmitted infection) Expected: 05/01/2025 (Approximate), Expires: 05/01/2026 Hepatitis C Antibody with Reflex to HCV, RNA, Quantitative, Real-Time PCR Lab Routine Routine screening for STI (sexually transmitted infection) Expected: 05/01/2025 (Approximate), Expires: 05/01/2026 Syphilis Screen Lab Routine Routine screening for STI (sexually transmitted infection) Expected: 05/01/2025 (Approximate), Expires: 05/01/2026 Bacterial Vaginosis, Yeast and Trich Microbiology Routine Routine screening for STI (sexually transmitted infection) Expected: 05/01/2025 (Approximate), Expires: 05/01/2026 Scheduled Referrals Name Type Priority Associated Diagnoses Orde r Schedule Referral to Allergy Outpatient Referral Routine Shellfish allergy Expected: 05/01/2025 (Approximate), Expires: 05/01/2026 documented as of this encounter Visit Diagnoses Diagnosis Moderate episode of recurrent major depressive disorder (CMS/HCC) ([facility])- Primary Mild intermittent asthma without complication Shellfish allergy Allergy to seafood History of anaphylaxis Encounter for HIV pre-exposure prophylaxis Encounter for vaccination Encounter for immunization Routine screening for STI (sexually transmitted infection) Screening examination for venereal disease Preventative health care Routine general medical examination at a health care facility documented in this encounter Additional Health Concerns Assessment Noted Time PHQ-9 Depression Total Score: 6 05/01/20 25 10:35 AM EDT documented as of this encounter Care Teams Coating And Baking Operator Relationship Specialty Start Date End Date Shelly Hernandez MD [address] [place] [phone] PCP - General Family Medicine 08/13/20 documented as of this encounter
--- OUTSIDE RECORDS SUMMARY | 2025-05-01 15:09 | XMS_ITS | Encounter Summary ---
Author Organization [employer] Address [address] [facility] [address] [place] [address] Care Team Providers Care Retail Department Supervisor Name Role Phone Shelly Hernandez MD Primary Care Provider +1- [phone] Encounter Details Date Type Department Care Team (Latest Contact Info) Description 05/01/2025 Travel Social History Tobacco Use Types Packs/Day Years [...] with others, in a hotel, in a jail, living outside on the street, on a [...] PM EDT documented as of this encounter Functional Status * Over the [...] AM EDT Rosaura Skinner MA * Trouble concentrating on things, such as reading the newspaper or watching television Answer Date of Assessment Author Not at all 05/01/2025 10:35 AM Rosaura Jarvis MA * Moving or speaking so slowly [...] Assessment Author Somewhat difficult 05/01/2025 10:35 AM Rosaura Lagunas MA * Over the last 2 weeks, [...] JESU-7 Total Score 6 05/01/2025 10:36 AM Rosauar Jarvis MA documented as of this encounter Plan of Treatment Upcoming Encounters Date Type Department Care Team (Late st Contact Info) Description 05/09/2025 1:00 PM EDT Nurse Only [facility] [address] [place] [phone] 07/04/2025 9:00 AM EST Procedure Visit [facility] [address] [place] [phone] Shelly Hernandez MD [address] [place] [phone] documented as of this encounter Visit Diagnoses Not on filedocumented in this encounter Additional Health Concerns Assessment Noted Time PHQ-9 Depression Total Score: 6 05/01/20 25 10:35 AM EDT documented as of this encounter Care Teams Retail Department Supervisor Relationship Specialty Start Date End Date Shelly Hernandez MD [address] [place] [phone] PCP - General Family Medicine 08/13/20 documented as of this encounter
--- OUTSIDE RECORDS SUMMARY | 2025-05-01 15:09 | XMS_ITS | Encounter Summary ---
Author Organization [employer] Address [address] [facility] [address] [place] [address] Care Team Providers Care Biomass Technician Name Role Phone Shelly Hernandez MD Primary Care Provider +1- [phone] Reason for Visit * Reason Onset Date Comments chart prep 04/30/2025 Encounter Details Date Type Department Care Team (Late st Contact Info) Description 04/30/2025 Telephone [facility] [address] [place], [place] [phone] Shelly Hernandez MD [address] [place], [place] [phone] chart prep Social History Tobacco Use Types Packs/Day Years Used Date Smoking Tobacco: Never Passive Smoke Exposure: Never Smokeless Tobacco: Never Depression Answer Date Recorded Patient Health Questionnaire-9 Score 6 05/01/2025 Patient Health Questionnaire-9 Score 6 05/01/2025 Last PHQ-9: Questionnaire Data Not on file 1 Housing Stability Answer Date Recorded What is your housing situation today? I do not have housing (Staying with others, in a hotel, in a fci, living outside on the street, on a [...] Access Q2 Not on file 04/23/2025 Comments Unknown Sex and Gender Information Value Date Recorded Sex Assigned at Female 05/09/2022 10:17 AM EDT Legal Sex Female 10:17 AM EDT Gender Identity Female 05/09/2022 10:17 AM EDT Sexual Orientation Bisexual 02/20/2025 2: 11 PM EDT Sexual Orientation Straight 02/20/2025 2: 11 PM EDT documented as of this encounter Miscellaneous Notes * Telephone Encounter - Noman Stockton MA - 04/30/2025 9:18 AM EDT Chart Prep Labs: done Images: not applicable Referrals: not applicable Vaccines due: Covid, Flu, and PCV20 Screenings: pap smear Overdue care gaps: SBIRT, PHQ-9, JESU-7, and Disability screen documented in this encounter Plan of Treatment Upcoming Encounters Date Type Department Care Team (Late st Contact Info) Description 05/09/2025 1:00 PM EDT Nurse Only [facility] [address] [place] [address] [phone] 07/04/2025 9:00 AM EST Procedure Visit [facility] [address] [place] [phone] Shelly Hernandez MD [address] [place] [address] documented as of this encounter Visit Diagnoses Not on filedocumented in this encounter Care Teams Biomass Technician Relationship Specialty Start Date End Date Shelly Hernandez MD [address] [place] [phone] PCP - General Family Medicine 08/13/20 documented as of this encounter
--- OUTSIDE RECORDS SUMMARY | 2025-05-01 15:10 | XMS_ITS | Clinical Summary ---
Author Organization [facility] Address [address] [place] [address] Care Team Providers Care Carpet Tile Layer Name Role Phone [facility] Primary Care Provider Allergies Active Allergy Reactions [...] of 3 - 19+ 3-dose series) 2021 Alcohol/Substance Use Screening 07/10/2024 COVID-19 Vaccine (1 - 2024-2 6 season) 2025 Influenza Vaccine (#1) 2025 06/12/2019 DTaP,Tdap,and Td Vaccines (3 - Td or Tdap) 09/15/2029 09/16/2019, 06/21/2019 RSV Vaccine (60+ years old a nd patients) (1 - 1-dose 75+ series) 2077 Meningococcal Vaccine Completed 09/16/2019 Pneumococcal Vaccine: Pediatric (0-5 Years) and At-Risk Patients (6-50 Years) Aged Out No longer eligible based on patient's age to complete this topic Insurance [facility] Advance Directives Documents on File Type Date Recorded Patient Computer Game Tester Expl anation Health Care Proxy 09/02/2020 8:41 AM 09-01 Health Care Proxy 09/02/2020 7:57 AM 09-01 Health Care Proxy 09/01/2020 2:43 PM 09-01 * Full Code (Latest Code Status on File) Date Activated Date Inactivated Comments 09/01/2020 10:38 AM 09/01/2020 9:24 PM Healthcare Agents on File Name Relationship Healthcare Agent Jose Cruz p Communication Smooth Townsend Significant Other Health Care Agent Care Teams Carpet Tile Layer Relationship Specialty Start Date End Date [facility] [address] [place] [phone] PCP - General 08/26/20
--- OUTSIDE RECORDS SUMMARY | 2025-05-01 15:10 | XMS_ITS | Clinical Summary ---
Author Organization [email or web address] Address [address] [facility] [address] [place] [address] Care Team Providers Care Marina Porter Name Role Phone Shelly Hernandez MD Primary Care Provider [phone]- [phone] Allergies Active Allergy Reactions Criticality Noted Date Comments Shellfish Protein-Containing Drug Products Swelling,Angioedema High 04/28/2014 Medications medroxyPROGESTER one (Depo-Provera) 150 MG/ML suspension prefilled syringe injection syringeIndicatio ns:Encounter for surveillance of injectable contraceptive Inject 150 mg by IM route every 3 months for contraception. Bring to nurse appointment for injection. 1 mL 3 025 Active EPINEPHrine (Epipen) 0.3 MG/0.3ML injection syringeIndicatio ns:History of anaphylaxis Inject 0.3 mL (0.3 mg) as directed 1 (one) time for 1 dose. use as directed for allergic reaction and then call 911 2 each 1 Active emtricitabine-te nofovir DF (Truvada) 200-300 MG tabletIndication s:Encounter for HIV pre-exposure prophylaxis Take 1 tablet by mouth Once per day. 30 tablet 2 025 2025 Active sertraline (Zoloft) 25 MG tabletIndication s:Moderate episode of recurrent major depressive disorder (CMS/HCC) (HCC) Take 1 tablet (25 mg) by mouth Once per day. 90 tablet 3 025 2025 Active EPINEPHrine (Epipen) 0.3 MG/0.3ML injection syringeIndicatio ns:History of anaphylaxis Inject 0.3 mL (0.3 mg) as directed 1 (one) time for 1 dose. use as directed for allergic reaction and then call 911 2 each 1 023 2024 Discontinued(R eorder (will not trigger notification to Pharmacy)) Vit-Iron Carbonyl-FA ( Plus Iron) 29-1 MG tablet 1 tab by oral route daily 019 2024 Discontinued(M ed list cleanup (will not trigger notification to Pharmacy)) ibuprofen 600 MG tablet Take 1 tablet by mouth every 6 (six) hours. 024 2024 Discontinued(M ed list cleanup (will not trigger notification to Pharmacy)) fluconazole (Diflucan) 150 MG tabletIndication s:Vaginal discharge 1 tablet today 1 tablet 024 2024 Discontinued(M ed list cleanup (will not trigger notification to Pharmacy)) emtricitabine-te nofovir DF (Truvada) 200-300 MG tabletIndication s:Encounter for HIV pre-exposure prophylaxis Take 1 tablet by mouth Once per day. 30 tablet 2 025 2024 Discontinued(R eorder (will not trigger notification to Pharmacy)) Hospital, Clinic, or Other Facility Administered Medication Ordered Dose Route Frequency Start Date End Date Status medroxyPROGESTERone (Depo-Provera) injection 150 mgIndications:Encounte r for contraceptive management, unspecified type 150 mg IM Every 3 months 02/21/2025 02/16/2026 Acti ve Active Problems Problem Noted Date Diagnosed Date Preventative health care 01/23/2023 Overview (05/01/2025): -next physical exam due after 05/01/26 -eye care facilitated by stella -dental home is [facility] -health care proxy filed 05/01/25 Attention deficit hyperactivity disorder, combin ed type 08/13/2015 Mild intermittent asthma 08/13/2015 Assessment & Plan (05/01/2025 12:40 PM EDT): -well controlled on albuterol prn Encounters Date Type Department Care Team Description 05/01/2025 10:00 AM EDT Office Visit [address] [address] Shelly Hernandez MD Moderate episode of recurrent major depressive disorder (CMS/HCC) (HCC) (Primary Dx); Mild intermittent asthma without complication; Shellfish allergy; History of anaphylaxis; Encounter for HIV pre-exposure prophylaxis; Encounter for vaccination; Encounter for immunization; Routine screening for STI (sexually transmitted infection); Preventative health care 05/01/2025 Travel 04/30/[address] [address] Shelly Hernandez MD chart prep 04/23/2025 Patient Outreach [address] [address] Shelly Hernandez MD Care Coordination (CHW outreach for SDOH housing search-LVM ) 04/23/2025 Patient Outreach [address] [address] Shelly Hernandez MD Pre-visit Planning (SDOH screening positive and Tobacco screening negative) 03/04/2025 Orders Only [address] [address] Shelly Hernandez MD Encounter for HIV pre-exposure prophylaxis (Primary Dx) 02/21/2025 1:00 PM EDT Clinical Support [address] [address] Amber Balletseros, CONSUELO Encounter for contraceptive management, unspecified type; STI (sexually transmitted infection) 02/21/[address] [address] Julia Lynn RN 02/21/2025 Travel 02/20/2025 2:20 PM EDT Office Visit [facility] [address] [place] [phone] Kyra Bear DO Vaginal discharge (Primary Dx); Screening examination for STI; Encounter for contraceptive management, unspecified type; Encounter for surveillance of injectable contraceptive; Vaginal discomfort; Amenorrhea 02/20/2025 Travel from Last 3 Months Immunizations Immunization Administration Dates Next Due DTP 12/01/2003 DTaP 12/14/2007, 3,2002,10/14 HPV 9-Valent 08/23/2024,03/08/2017,08/13/2015 HPV, Quadrivalent 08/23/2024 Hep A, ped/adol, 2 dose 05/07/2007,08/31/2006 Hep B, Adolescent or Pediatric 02/27/2003,2002,2002 Hib (HbOC) 12/01/2003, 3,2002,10/14 IPV 09/13/2007, 4,2002,10/14 Influenza injectable quadriv alent preservative free 03/16/2023,06/12/2019,03/30/2017,08/13 Influenza, IIV3, injectable 04/29/2024, 1 Influenza, Split (incl. jose fied surface antigen) 04/17/2012 Influenza, seasonal, injecta ble, preservative free 05/01/2025,04/29/2024 MMR 09/13/2007,09/04/2003 Meningococcal MCV4P ACYW-135 09/16/2019,08/13/19 16 Pfizer Covid-19 Vaccine 12+ 05/01/2025, 3 Pfizer Covid-19 Vaccine 12+ Bivalent 03/16/2023 Pneumococcal Conjugate PCV 20 05/01/2025 Pneumococcal Conjugate PCV 7 05/04/2004, 02/27/2003,2002,10/14 RSV Bivalent 04/10/2024 Rho(D)-IG IM 09/01/2020 Tdap 03/19/2024, 0,06/21/2019,08/13 Varicella 09/13/2007,09/04/2003 Family History Medical History Relation Name Comments Breast cancer Mother Cancer Mother's Sister Relation Name Status Comments Mother Mother's Sister Social History Tobacco Use Types Packs/Day Years Used Date Smoking Tobacco: Never Passive Smoke Exposure: Never Smokeless Tobacco: Never Tobacco Cessation:Counseling Given: Not Answered Alcohol Use Standard Drinks/Week Comments Never 0 [...] with others, in a hotel, in a fpc, living outside on the street, on a [...] Orientation Straight 02/20/2025 2: 11 PM EDT Last Filed Vital Signs Vital Sign Reading Time Taken Comments Blood Pressure 102/74 05/01/2025 10:04 AM EDT Pulse 76 05/01/2025 10:04 AM EDT Temperature 36.8 C (98.2 F) 05/01/2025 10:04 AM EDT Respiratory Rate 20 05/01/2025 10:0 4 AM EDT Oxygen Saturation 99% 02/20/2025 2:26 PM EDT Inhaled Oxygen Concentration - - Weight 57.1 kg (125 lb 12.8 oz) 025 10:04 AM EDT Height 154.9 cm (5' 1 ) 02/20/2025 2:26 PM EDT Body Mass Index 23.77 02/20/2025 2:26 PM EDT Plan of Treatment Upcoming Encounters Date Type Department Care Team (Late st Contact Info) Description 05/09/2025 1:00 PM EDT Nurse Only [facility] [address] [place] [address] 07/04/2025 9:00 AM EST Procedure Visit [facility] [address], [place] [phone] Shelly Hernandez MD [address] [place] [address] Health Maintenance Due Date Last Done Comments Family Planning (PISQ) 2017 Meningococcal B Vaccine (1 of 2 - Standard) 2018 Pap Smear 2023 Chlamydia and Gonorrhea Screening 02/20/2026 02/20/2025, 08/29/2023, 03/17/2023, Additional history exists SDOH Screening 04/23/2026 04/23/2025 Alcohol/Substance Use Screening 05/01/2026 05/01/2025 Depression Screening 05/01/2026 05/01/2025, 05/01/20 25 Disability Screening 05/01/2026 05/01/2025 Tobacco Screening 05/01/2026 05/01/2025 DTaP/Tdap/Td Vaccines (10 - Td or Tdap) 03/19/2034 03/19/2024, 09/16/2019, 06/21/2019, Additional history exists Zoster Vaccines (1 of 2) 2052 Hepatitis B Vaccines Completed 02/27/2003, 2002, 2002 HIB Vaccines Completed 12/01/2003, 02/08, 2002, Additional history exists Hepatitis A Vaccines Completed 05/07/2007, 08/31/19 07 IPV Vaccines Completed 09/13/2007, 11/08, 2002, Additional history exists Meningococcal Vaccine Completed 09/16/2019, 016 RSV Patients and Patients Aged 60 years or older Completed 04/10/2024 HPV Vaccines Completed 08/23/2024, 08/10, 03/08/2017, Additional history exists HIV Screening Completed 02/20/2025, 08/11, 03/17/2023 Hepatitis C Screening Completed 02/20/2025 , 08/29/2023, 03/17/2023 COVID-19 Vaccine Completed 05/01/2025, , 03/16/2023 Influenza Vaccine Completed 05/01/2025, , 04/29/2024, Additional history exists Pneumococcal Vaccine: Pediatrics (0 to 5 Years) and At-Risk Patients (6 to 49) Years Completed 05/01/2025, 05/04/2004, 02/27/2003, Additional history exists RSV under 20 months Aged Out No longe r eligible based on patient's age to complete this topic Rotavirus Vaccines Aged Out No longer eligible based on patient's age to complete this topic Procedures Procedure Name Priority Date/Time Associated Diagnosis Comments POCT , URINE Routine 02/21/2025 1:30 PM EDT Encounter for contraceptive management, unspecified type HEPATITIS B SURFACE ANTIBODY, QUALITATIVE Routine 02/20/2025 3:00 PM EDT Screening examination for STI RPR (MONITOR) W/REFL TITER Routine 02/20/2025 3:00 PM EDT Screening examination for STI HEPATITIS C AB W/REFL TO HCV RNA, QN, PCR Routine 02/20/2025 3:00 PM EDT Screening examination for STI HIV 1/2 ANTIGEN/ANTIBODY, FOURTH GENERATION W/RFL Routine 02/20/2025 3:00 PM EDT Screening examination for STI HEPATITIS B SURFACE ANTIGEN, EIA Routine 02/20/2025 3:00 PM EDT Screening examination for STI POCT , URINE Routine 02/20/2025 2:35 PM EDT Amenorrhea CHLAMYDIA/N. GONORRHOEAE RNA, TMA, UROGENITAL Routine 02/20/2025 2:23 PM EDT Vaginal discomfort BACTERIAL VAGINOSIS PANEL Routine 02/20/2025 2:23 PM EDT Vaginal discomfort from Last 3 Months Results * POCT Urine (02/21/2025 1:30 PM EDT) Only the most recent of2 resultswithin the time period is included. Pathologist [facility] Preg Test, Ur Negative Negative, Indeterminate, None Detected, Invalid, Specimen unsatisfactory for evaluation, Weakly Positive, 2+ QC Media Lot # [id number] Lot# Expiration Date [id number] Urine 02/21/2025 1:30 PM EDT Kyra Bear DO POINT OF CARE TEST ENTER/ROBBY T ORDERABLES Final Result * Hepatitis C Antibody with Reflex to HCV, RNA, Quantitative, Real-Time PCR (02/20/2025 3:00 PM EDT) [facility] Hepatitis C Antibody Nonreactive Nonreactive [facility] Comment:Antibodies to HCV no t detected; does not exclude early acuteHCV infection. Blood Venous blood specimen / Unknown 02/20/2025 3:00 PM EDT 02/20/2025 4:28 PM EDT Kyra Bear DO LAB BLOOD ORDERABLES Final R esult [facility] [address] [place] [phone] * Hepatitis B surface antigen, EIA (02/20/2025 3:00 PM EDT) [facility] Hepatitis B Surface Ag Negative Negative [facility] Blood Venous blood specimen / Unknown 02/20/2025 3:00 PM EDT 02/20/2025 4:28 PM EDT us Kyra Bear DO LAB BLOOD ORDERABLES Final R esult Performing Organization Address City/[facility]/ZIP Co de Phone Number [facility] [address] [place] [phone] * RPR (Monitor) with Reflex to??Titer (02/20/2025 3:00 PM EDT) RPR (Monitor) w/Refl Titer NON-REACTI VE NON-REACT FAMILIA [facility] Comment:THIS TEST WAS PERFOR MED AT:[facility] [place] [phone] BREWER MD Rapid Plasma Reagin Ab Titer TNP [facility] Blood Venous blood specimen / Unknown 02/20/2025 3:00 PM EDT 02/20/2025 4:28 PM EDT us Kyra Bear DO LAB BLOOD ORDERABLES Final R esult Performing Organization Address [facility]/ZIP Co de Phone Number [facility] [address] [place] [phone] * HIV-1/2 Antigen and Antibodies, Fourth Generation, with Reflexes (02/20/2025 3:00 PM EDT) HIV AB/AG Nonreactive Nonreactive [facility] Comment:HIV-1 p24 Ag and/or HIV-1/HIV-2 Ab not detected.A test result that is nonreactive does not exclude thepossibility of exposure to or infection with HIV-1 and/orHIV-2. Nonreactive results in this assay for individualswith prior exposure to HIV-1 and/or HIV-2 may be due toantigen and antibody levels that are below the limit ofdetection of this assay.The [employer] HIV Ag/Ab Combo assay result andsupplemental assay results should be interpreted inconjunction with the patient's clinical presentation,history and other laboratory results. If the results areinconsistent with clinical evidence, additional testing issuggested to confirm the result. Blood Venous blood specimen / Unknown 02/20/2025 3:00 PM EDT 02/20/2025 4:28 PM EDT [facility] BLOOD ORDERABLES Final R esult Performing Organization Address City/[facility]/ZIP Co de Phone Number [facility] [address] [place] [phone] * Hepatitis B Surface Antibody, Qualitative (02/20/2025 3:00 PM EDT) ~Hepatitis B Surface Antibody NONREACTIVE Nonreactive [facility] Comment:Nonreactive: < 8.00 mIU/mL Blood Venous blood specimen / Unknown 02/20/2025 3:00 PM EDT 02/20/2025 4:28 PM EDT [facility] BLOOD ORDERABLES Final R esult Performing Organization Address [facility] Co de Phone Number [facility] [address] [place] [phone] * (ABNORMAL) Bacterial Vaginosis (02/20/2025 2:23 PM EDT) TRICHOMONAS VAGINALIS DETECTION BY PCR NOT DETECTED Not Detect [facility] BACTERIAL VAGINOSIS DETECTION BY PCR POSITIVE(A) Negative [facility] Comment:The BV organism targ ets of the Xpert Xpress MVP test can becommensal in women; Xpert Xpress MVP positive results forbacterial vaginosis should be considered in conjunction withother clinical and patient information to determine thedisease status. Organisms that are not detected by the XpertXpress MVP test have also been reported to be associatedwith BV and aerobic vaginitis.The Xpert Xpress MVP test performance has not been evaluatedin patients under the age of 14. [employer] DETECTION BY PCR NOT DETECTED Not Detect [facility] Kaycee glab krusei PCR NOT DETECTED Not Detect [facility] Swab Vaginal structure / Unknown 02/20/2025 2:23 PM EDT 02/20/2025 5:01 PM EDT Kyra Bear DO LAB MICROBIOLOGY - GENERAL O RDERABLES Final Result [facility] [address] [place] [phone] * (ABNORMAL) Chlamydia/N. Gonorrhoeae RNA, TMA, Urogenitial (02/20/2025 2:23 PM EDT) CT PCR NOT DETECTED Not Detect. [facility] Comment:A not detected test result does not exclude the possibilityof infection because test results can be affected byimproper specimen collection, concurrent antibiotic therapy,or the number of organisms in the specimen which may bebelow the sensitivity of the test. As with many diagnostictests, results from the Xpert CT/NG assay should beinterpreted in conjunction with other laboratory andclinical data available to the clinician.Xpert CT/NG performance has not been evaluated in patientsless than 14 years of age. The assay should not be used forthe evaluationof suspected sexual abuse or for other medico-legalindications. Additional testing is recommended in anycircumstance when false positive or false negative resultscould lead to adverse medical, social or psychologicalconsequences. NG PCR DETECTED(A) Not Detect. [facility] Comment:As with many diagnos tic tests, results from the Xpert CT/NGassay should be interpreted in conjunction with otherlaboratory and clinical data available to the clinician.Xpert CT/NG performance has not been evaluated in patientsless than 14 years of age. The assay should not be used forthe evaluationof suspected sexual abuse or for other medico-legalindications. Additional testing is recommended in anycircumstance when false positive or false negative resultscould lead to adverse medical, social or psychologicalconsequences.These results must be reported by the ordering clinician orclinical facility to the [facility]as required by state law. Swab Vaginal structure / Unknown 02/20/2025 2:23 PM EDT 02/20/2025 5:01 PM EDT Kyra Bear DO LAB MICROBIOLOGY - GENERAL O RDERABLES Final Result [facility] [address] [place] [phone] from Last 3 Months Insurance C3 Care Teams Marina Porter Relationship Specialty Start Date End Date [place], [place] Shelly [address] [place] [phone] PCP - General Family Medicine 08/13/20
--- OUTSIDE RECORDS SUMMARY | 2025-05-01 15:10 | XMS_ITS | Encounter Summary ---
Author Organization [employer] Address [address] [facility] [address] [place] [address] Care Team Providers Care Bead Cutter Name Role Phone Shelly Hernandez MD Primary Care Provider [phone]- [phone] Reason for Visit * Reason Onset Date Comments Med Refill 03/27/2023 Encounter Details Date Type Department Care Team (Late st Contact Info) Description 03/27/[address] [facility] [address] [place] [phone] Ana Menchaca FNP Social History Tobacco Use Types Packs/Day Years [...] PM EDT documented as of this encounter Plan of Treatment Upcoming Encounters Date Type Department Care Team (Late st Contact Info) Description 05/09/2025 1:00 PM EDT Nurse Only [facility] [address] [place] [phone] 07/04/2025 9:00 AM EST Procedure Visit [facility] [address] [place] [phone] Shelly Hernandez MD [address] [place] [phone] documented as of this encounter Visit Diagnoses Not on filedocumented in this encounter Care Teams Bead Cutter Relationship Specialty Start Date End Date Shelly Hernandez MD [address] [place], [place] [phone] PCP - General Family Medicine 08/13/20 documented as of this encounter
--- OUTSIDE RECORDS SUMMARY | 2025-05-01 15:10 | XMS_ITS | Encounter Summary ---
Author Organization [employer] Address [address] [facility] [address] [place] [address] Care Team Providers Care Tearoom Host/Hostess Name Role Phone Shelly Hernandez MD Primary Care Provider +1- [phone] Encounter Details Date Type Department Care Team (Late st Contact Info) Description 01/30/2023 Abstract [facility] [address] [place] [phone] Shelly Hernandez MD [address] [place] [address] [phone] Social History Tobacco Use Types Packs/Day Years Used Date Smoking Tobacco: Never Assessed Comments Unknown Sex and Gender Information Value [...] Description 05/09/2025 1:00 PM EDT Nurse Only [facility] [address] [place] [phone] 07/04/2025 9:00 AM EST Procedure Visit [facility] [address] [place] [phone] Shelly Hernandez MD [address] [place] [address] [phone] documented as of this encounter Visit Diagnoses Not on filedocumented in this encounter Care Teams Tearoom Host/Hostess Relationship Specialty Start Date End Date Shelly Hernandez MD [address] [facility] [place] [phone] PCP - General Family Medicine 08/13/20 documented as of this encounter
[2025-05-02 04:06] LABS: Syphilis Screen Nonreactive (Nonreactive)
[2025-05-02 04:39] LABS: HIV Num 1 0.33 S/CO (0.00-0.99); ~HepC Num1 0.17 S/CO (0.00-0.79); ~Hepatitis C Antibody Nonreactive (Nonreactive)
[2025-05-02 06:06] LABS: CT PCR NOT DETECTED (Not Detect.); NG PCR NOT DETECTED (Not Detect.)
== END 2025-05-01 11:53 | disposition home or self-care (01) ==
LOC: HO.HHCL 11:52
PROVIDERS: PCP Family Medicine; Visit Provider Family Medicine
DX: Z11.3 Encounter for screening for infections with a predominantly sexual mode of transmission (principal); Z11.59 Encounter for screening for other viral diseases; Z11.4 Encounter for screening for human immunodeficiency virus [HIV]
CPT/HCPCS: 36415; 86780; 86803; 87389; 87491; 87591

== ENCOUNTER 2025-05-29 17:41 | Outpatient (REF) | payer MEDICAID, SELFPAY ==
--- OUTSIDE RECORDS SUMMARY | 2025-05-29 10:20 | XMS_ITS | Encounter Summary ---
Author Organization [employer] Address [address] [facility] 7t [place] [address] Care Team Providers Care Superintendent Gas Distribution Name Role Phone Shelly Hernandez MD Primary Care Provider +1- [phone] Reason for Visit * Reason Comments UTI Encounter Details Date Type Department Care Team ([facility] st Contact Info) Description 05/29/2025 10:20 AM EST Office Visit [facility] [address] [place] [address] [phone] Erlin Lee MD [address] [place], [place] [phone] Acute cystitis with hematuria Social History Tobacco Use Types Packs/Day Years [...] with others, in a hotel, in a intermediate, living outside on the street, on a [...] Sign Reading Time Taken Comments Blood Pressure 117/65 05/29/2025 10:08 AM EST Pulse 89 05/29/2025 10:08 AM EST Temperature 36.6 C (97.9 F) 05/29/2025 10:08 AM EST Respiratory Rate 16 05/29/2025 10:08 AM EST Oxygen Saturation 98% 05/29/2025 10:08 AM EST Inhaled Oxygen Concentration - - Weight 55.3 kg (122 lb) 05/29/2025 10:08 AM EST Height - - Body Mass Index 23.05 02/20/2025 2:26 PM EDT documented in this encounter Progress Notes * Erlin Lee MD - 05/29/2025 10:20 AM EST Subjective History was provided by the patient. Kassi Shepherd is a 24 y.o. female who presents for evaluation of 1-day duration of dysuria, urinary urgency, and frequency. Noted a scant amount of blood on underwear. LMP was 2 weeks ago (on Depo-Provera, but missed her injection appointment this month). Denies F/C/N/V/D. Denies foul-smelling urine. Last UTI was many years ago. Objective Vitals: 05/29/25 1008 BP: 117/65 BP Location: Left arm Patient Position: Sitting BP Cuff Size: Adult Pulse: 89 Resp: 16 Temp: 97.9 ??F (36.6 ??C) TempSrc: Temporal SpO2: 98% Weight: 122 lb (55.3 kg) Physical Exam Vitals reviewed. Constitutional: General: She is not in acute distress. Appearance: Normal appearance. She is not ill-appearing, toxic-appearing or diaphoretic. HENT: Nose: Nose normal. Mouth/Throat: Mouth: Mucous membranes are moist. Pharynx: Oropharynx is clear. Eyes: Extraocular Movements: Extraocular movements intact. Conjunctiva/sclera: Conjunctivae normal. Pulmonary: Effort: Pulmonary effort is normal. Abdominal: General: Abdomen is flat. Palpations: Abdomen is soft. Tenderness: There is no abdominal tenderness. Musculoskeletal: General: Normal range of motion. Cervical back: Neck supple. Skin: General: Skin is warm and dry. Neurological: General: No focal deficit present. Mental Status: She is alert and oriented to person, place, and time. Psychiatric: Mood and Affect: Mood normal. Behavior: Behavior normal. Kassi was seen today for uti. Diagnoses and all orders for this visit: Acute cystitis with hematuria - Culture, Urine, Routine - POCT urinalysis dipstick manually resulted (CPT 33665) - sulfamethoxazole-trimethoprim (Bactrim DS) 800-160 MG tablet; Take 1 tablet by mouth 2 times daily for 3 days. Patient with a clinical presentation of acute UTI No clinical evidence of acute abdomen or pyelonephritis POC UA showed blood and leukocytes (nitrite negative) Will send out UCx Start Bactrim DS BID for 3 days Potential adverse effects of the medication reviewed Probiotic use discussed Allergies reviewed Discussed strategies to prevent future infections Will reschedule her Depo-Provera injection appointment (patient wishes to continue) Advised to contact the clinic if no improvement of symptoms Indications for UC/ER use reviewed documented in this encounter Plan of Treatment Upcoming Encounters Date Type Department Care Team (Late st Contact Info) Description 07/25/2025 10:30 AM EST Procedure Visit [facility] [address] [place] [address] Shelly Hernandez MD [address] [place] [address] Scheduled Orders Name Type Priority Associated Diagnoses Orde r Schedule Culture, Urine, Routine Microbiology Routine Acute cystitis with hematuria Ordered: 05/29/2025 documented as of this encounter Procedures Procedure Name Priority Date/Time Associated Diagnosis Comments POCT URINALYSIS DIPSTICK Routine 05/29/2025 10:15 AM EST Acute cystitis with hematuria documented in this encounter Results * (ABNORMAL) POCT urinalysis dipstick manually resulted (CPT 54194) (05/29/2025 10:15 AM EST) Color, UA Yellow Comment:Dark Clarity, UA Cloudy Glucose, UA Negative Bilirubin, UA Few 15 Ketones, UA Negative Spec Grav, UA 1.030 Blood, UA Positive(A) Negative, None Detected Comment:Large pH, UA 6.0 Protein, UA 3+ 500+++ Comment:300mg Urobilinogen, UA 0.2 Leukocytes, UA Few 15(A) Negative, Rare, Trace Comment:Small Nitrite, UA Negative Negative, None Detected Appearance, UA OK Urine (Urine, Random) 05/29/2025 10:15 AM EST Erlin Lee MD POINT OF CARE TEST ENTER/EDIT OR DERABLES Final Result documented in this encounter Visit Diagnoses Diagnosis Acute cystitis with hematuria documented in this encounter Additional Health Concerns Assessment Noted Time PHQ-9 Depression Total Score: 6 05/01/20 25 10:35 AM EDT documented as of this encounter Care Teams Superintendent Gas Distribution Relationship Specialty Start Date End Date Shelly Hernandez MD [address] [place] [address] PCP - General Family Medicine 08/13/20 documented as of this encounter
--- OUTSIDE RECORDS SUMMARY | 2025-05-29 21:02 | XMS_ITS | Encounter Summary ---
Author Organization [employer] Address [address] [facility] [address] [place] [address] Care Team Providers Care Inspector Timers Name Role Phone Shelly Hernandez MD Primary Care Provider +1- [phone] Reason for Visit * Reason Onset Date Comments Appointment Request 05/29/2025 Encounter Details Date Type Department Care Team ([facility] st Contact Info) Description 05/29/2025 Telephone [facility] [address] [place] [address] [phone] Erlin Lee MD [address] [place], [place] [phone] Appointment Request Social History Tobacco Use Types Packs/Day Years [...] encounter Miscellaneous Notes * Telephone Encounter - Leanne Chacon RN - 05/29/2025 1:38 PM EST TC placed to the pt and LVM to call back the office in regard to message below from Dr. Lee regarding pt Depo Provera Chrissie, this patient was seen in [facility] for UTI. After the patient left, I realized she recently missedher Depo-Provera injection appointment. I called the patient afterward. She wishes to continue withDepo-Provera, but missed the appointment because of family illness. Could you reach out to the patient to reschedule for the injection? There should be 3 refills at [facility]. Thank you. * Telephone Encounter - Erlin Lee MD - 05/29/2025 10:37 AM EST Communication with PCP Team RN documented in this encounter Plan of Treatment Upcoming Encounters Date Type Department Care Team (Late st Contact Info) Description 07/25/2025 10:30 AM EST Procedure Visit [facility] [address] [place] [address] Shelly Hernandez MD [address] [place] [address] documented as of this encounter Visit Diagnoses Not on filedocumented in this encounter Additional Health Concerns Assessment Noted Time PHQ-9 Depression Total Score: 6 05/01/20 25 10:35 AM EDT documented as of this encounter Care Teams Inspector Timers Relationship Specialty Start Date End Date Shelly Hernandez MD [address] [place] [address] PCP - General Family Medicine 08/13/20 documented as of this encounter
--- OUTSIDE RECORDS SUMMARY | 2025-05-29 21:02 | XMS_ITS | Encounter Summary ---
Author Organization [employer] Address [address] [facility] 7t [place] [address] Care Team Providers Care Wind Turbine Mechanical Engineer Name Role Phone Shelly Hernandez MD Primary Care Provider +1- [phone] Encounter Details Date Type Department Care Team (Latest Contact Info) Description 05/29/2025 Travel Social History Tobacco Use Types Packs/Day [...] with others, in a hotel, in a fdc, living outside on the street, on a [...] Description 07/25/2025 10:30 AM EST Procedure Visit [facility] [address] [place] [address] Shelly Hernandez MD [address] [place] [address] documented as of this encounter Visit Diagnoses Not on filedocumented in this encounter Additional Health Concerns Assessment Noted Time PHQ-9 Depression Total Score: 6 05/01/20 25 10:35 AM EDT documented as of this encounter Care Teams Wind Turbine Mechanical Engineer Relationship Specialty Start Date End Date Shelly Hernandez MD [address] [place] [address] PCP - General Family Medicine 08/13/20 documented as of this encounter
--- OUTSIDE RECORDS SUMMARY | 2025-05-29 21:02 | XMS_ITS | Encounter Summary ---
Author Organization [employer] Address [address] [facility] [address] [address] Care Team Providers Care Atg Java Developer Name Role Phone Shelly Hernandez MD Primary Care Provider +1- [phone] Encounter Details Date Type Department Care Team (Late st Contact Info) Description 01/30/2023 Abstract [facility] [address] [place] [address] [phone] Shelly Hernandez MD [address] [place] [address] [phone] Social History Tobacco Use Types Packs/Day Years [...] Description 07/25/2025 10:30 AM EST Procedure Visit [facility] [address] [place] [address] [phone] Shelly Hernandez MD [address] [place] [address] [phone] documented as of this encounter Visit Diagnoses Not on filedocumented in this encounter Care Teams Atg Java Developer Relationship Specialty Start Date End Date Shelly Hernandez MD [address] [place] [address] PCP - General Family Medicine 08/13/20 documented as of this encounter
--- OUTSIDE RECORDS SUMMARY | 2025-05-29 21:02 | XMS_ITS | Clinical Summary ---
Author Organization [employer] Address [address] [facility] 7t [place] [address] Care Team Providers Care Postal Worker Name Role Phone Shelly Hernandez MD Primary Care Provider +1- [phone] Allergies Active Allergy Reactions Criticality Noted Date Comments Shellfish Protein-Containing Drug Products Swelling,Angioedema High 04/28/2014 Medications * This document contains information received from the source organization and may not represent a complete record from that organization. medroxyPROGESTER one (Depo-Provera) 150 MG/ML suspension prefilled [...] and then call 911 2 each 1 025 Active emtricitabine-te nofovir DF (Truvada) 200-300 MG tabletIndication s:Encounter for HIV pre-exposure prophylaxis Take 1 tablet by mouth Once per day. 30 tablet 2 025 2025 Active sertraline (Zoloft) 25 MG tabletIndication s:Moderate episode of recurrent major depressive disorder (CMS/HCC) (HCC) Take 1 tablet (25 mg) by mouth Once per day. 90 tablet 3 025 2025 Active sulfamethoxazole -trimethoprim (Bactrim DS) 800-160 MG tabletIndication s:Acute cystitis with hematuria Take 1 tablet by mouth 2 times daily for 3 days. 6 tablet 025 2024 Active EPINEPHrine (Epipen) 0.3 MG/0.3ML injection syringeIndicatio [...] Active Problems Problem Noted Date Diagnosed Date depression 05/15/2025 MDD (major depressive disorder), recurrent episo de, mild 05/15/2025 Preventative health care 01/23/2023 Overview (05/01/2025): -next physical exam due after 05/01/26 -eye care facilitated by na -dental home is [facility] -health care proxy filed 05/01/25 Attention deficit hyperactivity disorder, combin ed type 08/13/2015 Mild intermittent asthma 08/13/2015 Assessment & Plan (05/01/2025 12:40 PM EDT): -well controlled on albuterol prn Encounters * This document contains information received from the source organization and may not represent a complete record from that organization. Date Type Department Care Team Description 05/29/2025 10:20 AM EST Office [facility] [address] [phone] Erlin Lee MD Acute cystitis with hematuria 05/29/[address] [address] Shelly Hernandez MD appt Reschedule 05/29/2025 [facility] [address] [address] Erlin Lee MD Appointment Request 05/29/2025 Travel 05/02/2025 Results Follow-Up [address] [address] Shelly Hernandez MD Chlamydia/N. Gonorrhoeae RNA, TMA, Vagina, HIV-1/2 Antigen and Antibodies, Fourth Generation, with Reflexes, Hepatitis C Antibody with Reflex to HCV, RNA, Quantitative, Real-Time PCR, Syphilis Screen 05/01/2025 10:00 AM EDT Office Visit [address] [address] Shelly Hernandez MD Moderate episode of recurrent major depressive disorder (CMS/HCC) (HCC) (Primary Dx); Mild intermittent asthma without complication; Shellfish allergy; History of anaphylaxis; Encounter for HIV pre-exposure prophylaxis; Encounter for vaccination; Encounter for immunization; Routine screening for STI (sexually transmitted infection); Preventative health care 05/01/2025 Travel 04/30/[address] [address] Shelly Hernandez MD chart prep 04/23/2025 Patient Outreach [address] [address] Shelly Hernandez MD Care Coordination (CHW outreach for SDOH housing search-LVM ) 04/23/2025 Patient Outreach [address] [address] Shelly Hernandez MD Pre-visit Planning (SDOH screening positive and Tobacco screening negative) 03/04/2025 Orders Only [address] [address] Shelly Hernandez MD Encounter for HIV pre-exposure prophylaxis (Primary Dx) from Last 3 Months Immunizations Immunization Administration [...] with others, in a hotel, in a care home, living outside on the street, on a [...] (122 lb) 05/29/2025 10:08 AM EST Height 154.9 cm (5' 1 ) 02/20/2025 2:26 PM EDT Body Mass Index 23.05 02/20/2025 2:26 PM EDT Plan of Treatment Upcoming Encounters Date Type Department Care Team (Late st Contact Info) Description 07/25/2025 10:30 AM EST Procedure Visit [facility] [address] [place] [address] Shelly Hernandez MD [address] [place] [address] Health Maintenance Due Date Last Done Comments Family Planning (PISQ) 2017 Meningococcal B Vaccine (1 of 2 - Standard) 2018 Pap Smear 2023 SDOH Screening 04/23/2026 04/23/2025 Alcohol/Substance Use Screening 05/01/2026 05/01/2025 Chlamydia and Gonorrhea Screening 05/01/2026 05/01/2025, 02/20/2025, 12/25/2024, Additional history exists Depression Screening 05/01/2026 05/01/2025, 05/01/20 25 Disability Screening 05/01/2026 05/01/2025 Tobacco Screening 05/29/2026 05/29/2025 DTaP/Tdap/Td Vaccines (10 - Td or Tdap) [...] Completed 08/23/2024, 08/10, 03/08/2017, Additional history exists COVID-19 Vaccine Completed 05/01/2025, , 03/16/2023 HIV Screening Completed 05/01/2025, 02/07, 08/29/2023, Additional history exists Hepatitis C Screening Completed 05/01/2025 , 02/20/2025, 08/29/2023, Additional history exists Influenza Vaccine Completed 05/01/2025, , 04/29/2024, Additional [...] 10:15 AM EST Acute cystitis with hematuria SYPHILIS SCREEN Routine 05/01/2025 11:59 AM EDT Routine screening for STI (sexually transmitted infection) HEPATITIS C AB W/REFL TO HCV RNA, QN, PCR Routine 05/01/2025 11:59 AM EDT Routine screening for STI (sexually transmitted infection) HIV 1/2 ANTIGEN/ANTIBODY, FOURTH GENERATION W/RFL Routine 05/01/2025 11:59 AM EDT Routine screening for STI (sexually transmitted infection) CHLAMYDIA/N. GONORRHOEAE RNA, TMA, UROGENITAL Routine 05/01/2025 10:43 AM EDT Routine screening for STI (sexually transmitted infection) from Last 3 Months Results * (ABNORMAL) POCT urinalysis dipstick manually resulted (CPT 02691) (05/29/2025 10:15 AM EST) Color, UA Yellow [...] CARE TEST ENTER/EDIT OR DERABLES Final Result * Syphilis Screen (05/01/2025 11:59 AM EDT) Pathologist [facility] Syphilis Screen Nonreactive Nonreactive [facility] Blood Venous blood specimen / Unknown 05/01/2025 11:59 AM EDT 05/01/2025 1:01 PM EDT Shelly Hernandez MD LAB BLOOD ORDERABLES Final Result [facility] [address] [place] [phone] * Hepatitis C Antibody with Reflex to HCV, RNA, Quantitative, Real-Time PCR (05/01/2025 11:59 AM EDT) Hepatitis C Antibody Nonreactive Nonreactive [facility] Comment:Antibodies to HCV no t detected; does not exclude early acuteHCV infection. Blood Venous blood specimen / Unknown 05/01/2025 11:59 AM EDT 05/01/2025 1:01 PM EDT Shelly Hernandez MD LAB BLOOD ORDERABLES Final Result Performing Organization Address City/[facility]/ZIP Co de Phone Number [facility] [address] [place] [address] [phone] * HIV-1/2 Antigen and Antibodies, Fourth Generation, with Reflexes (05/01/2025 11:59 AM EDT) Pathologist [facility] HIV AB/AG Nonreactive Nonreactive [facility] Comment:HIV-1 p24 Ag and/or HIV-1/HIV-2 Ab not detected.A test result that is nonreactive does not exclude thepossibility of exposure to or infection with HIV-1 and/orHIV-2. Nonreactive results in this assay for individualswith prior exposure to HIV-1 and/or HIV-2 may be due toantigen and antibody levels that are below the limit ofdetection of this assay.The [employer] HIV Ag/Ab Combo assay result andsupplemental assay results should be interpreted inconjunction with the patient's clinical presentation,history and other laboratory results. If the results areinconsistent with clinical evidence, additional testing issuggested to confirm the result. Blood Venous blood specimen / Unknown 05/01/2025 11:59 AM EDT 05/01/2025 1:01 PM EDT Shelly Hernandez MD LAB BLOOD ORDERABLES Final Result Performing Organization Address City/[facility]/ZIP Co de Phone Number [facility] [address] [place] [address] [phone] * Chlamydia/N. Gonorrhoeae RNA, TMA, Vagina (05/01/2025 10:43 AM EDT) Pathologist [facility] CT PCR NOT DETECTED Not Detect. [facility] Comment:A not detected test result [...] adverse medical, social or psychologicalconsequences. NG PCR NOT DETECTED Not Detect. [facility] Comment:A not detected test result [...] lead to adverse medical, social or psychologicalconsequences. Swab Vaginal structure / Unknown 05/01/2025 10:43 AM EDT 05/01/2025 5:32 PM EDT us Shelly Hernandez MD LAB MICROBIOLOGY - GENERAL ORDERABLES Final Result [facility] [address] [place] [address] [phone] from Last 3 Months Insurance [facility] C3 Care Teams Postal Worker Relationship Specialty Start Date End Date [place], MD Shelly [address] [place] [phone] PCP - General Family Medicine 08/13/20
--- OUTSIDE RECORDS SUMMARY | 2025-05-29 21:02 | XMS_ITS | Clinical Summary ---
Author Organization [facility] Address [address] [place] [address] Care Team Providers Care Physical Trainer Name Role Phone [facility] Primary Care Provider Allergies Active Allergy Reactions [...] 3-dose series) 2021 Alcohol/Substance Use Screening 07/10/2024 Influenza Vaccine (#1) 2025 06/12/2019 COVID-19 Vaccine (1 - 2024-2 6 season) 2025 DTaP,Tdap,and Td Vaccines (3 - Td or Tdap) 09/15/2029 09/16/2019, 06/21/2019 Meningococcal Vaccine Completed 09/16/2019 Pneumococcal Vaccine: Pediatric (0-5 Years) and At-Risk Patients (6-50 Years) Aged Out No longer eligible based on patient's age to complete this topic Insurance [facility] Advance Directives Documents on File Type Date Recorded Patient Primary Care Nurse Practitioner Expl anation Health Care Proxy 09/02/2020 8:41 AM 09-01 Health Care Proxy 09/02/2020 7:57 AM 09-01 Health Care Proxy 09/01/2020 2:43 PM 09-01 * Full Code (Latest Code Status on File) Date Activated Date Inactivated Comments 09/01/2020 10:38 AM 09/01/2020 9:24 PM Healthcare Agents on File Name Relationship Healthcare Agent Relationshi p Communication [place] Significant Other Health Care Agent Care Teams Physical Trainer Relationship Specialty Start Date End Date [facility] [address] [place] [address] PCP - General 08/26/20
--- OUTSIDE RECORDS SUMMARY | 2025-05-29 21:02 | XMS_ITS | Encounter Summary ---
Author Organization [employer] Address [address] [facility] [address] [place] [address] Care Team Providers Care Games Manager Name Role Phone Shelly Hernandez MD Primary Care Provider +1- [phone] Reason for Visit * Reason Onset Date Comments appt Reschedule 05/29/2025 Encounter Details Date Type Department Care Team ([facility] st Contact Info) Description 05/29/2025 Telephone [facility] [address] [place], [place] [phone] Shelly Hernandez MD [address] [place], [place] [phone] appt Reschedule Social History Tobacco Use Types Packs/Day Years [...] with others, in a hotel, in a [facility], living outside on the street, on a [...] encounter Miscellaneous Notes * Telephone Encounter - Amelie Sykes MA - 05/29/2025 11:18 AM EST I book the appointment on 07/25/2025 at 10:30 am for Pap. documented in this encounter Plan of Treatment Upcoming Encounters Date Type Department Care Team (Late st Contact Info) Description 07/25/2025 10:30 AM EST Procedure Visit [facility] [address] [place] [address] Shelly Hernandez MD [address] [place] [address] documented as of this encounter Visit Diagnoses Not on filedocumented in this encounter Additional Health Concerns Assessment Noted Time PHQ-9 Depression Total Score: 6 05/01/20 25 10:35 AM EDT documented as of this encounter Care Teams Games Manager Relationship Specialty Start Date End Date Shelly Hernandez MD [address] [place] [phone] PCP - General Family Medicine 08/13/20 documented as of this encounter
--- OUTSIDE RECORDS SUMMARY | 2025-05-29 21:02 | XMS_ITS | Encounter Summary ---
Author Organization [employer] Address [address] [facility] [address] [place] [address] Care Team Providers Care Water Conservation Specialist Name Role Phone Shelly Hernandez MD Primary Care Provider +1- [phone] Reason for Visit * Reason Onset Date Comments Med Refill 03/27/2023 Encounter Details Date Type Department Care Team (Late st Contact Info) Description 03/27/2023 Refill [facility] [address] [place] [address] [phone] Ana Menchaca FNP Social History Tobacco Use [...] Description 07/25/2025 10:30 AM EST Procedure Visit [facility] [address] [place] [address] [phone] Shelly Hernandez MD [address] [place] [address] documented as of this encounter Visit Diagnoses Not on filedocumented in this encounter Care Teams Water Conservation Specialist Relationship Specialty Start Date End Date Shelly Hernandez MD [address] [place] [address] PCP - General Family Medicine 08/13/20 documented as of this encounter
== END 2025-05-29 17:42 | disposition home or self-care (01) ==
LOC: HO.HHCLNP 17:41
PROVIDERS: Visit Provider Family Medicine
DX: R39.9 Unspecified symptoms and signs involving the genitourinary system (principal)
CPT/HCPCS: 87086; 87088; 87186